=== PATIENT | male | born 1950 | race Caucasian/White ===

== ENCOUNTER 2018-02-20 23:01 | Inpatient (IN) | payer MEDICARE ==
[2018-02-21] MEDS: SENNOSIDES-DOCUSATE SODIUM 1 EACH TAB PO SCH ×3 (02:50→20:19)
[2018-02-21] MEDS: SODIUM CHLORIDE 0.9% 1,000 ML IV SCH ×3 (02:51→21:43)
[2018-02-21] MEDS: SYMBICORT 160-4.5 MCG INHALER INHALATION SCH ×2 (08:24→20:03)
[2018-02-21 08:25] LABS: Anion Gap 7 mmol/L; Blood Urea Nitrogen 23 mg/dL (9-20); Carbon Dioxide 30 mmol/L (22-30); Chloride 95 mmol/L (98-107); Glucose 129 mg/dL (74-99); Potassium 5.2 mmol/L (3.5-5.1); Sodium 132 mmol/L (137-145)
[2018-02-21 08:36] LABS: Basophils % (A) 0 %; Eosinophils % (A) 1 %; HCT 38.2 % (39.0-53.0); HGB 12.4 gm/dL (13.0-17.5); Lymphocytes # (A) 0.3 k/uL (1.0-4.8); Lymphocytes % (A) 7 %; MCH 29.4 pg (25.0-35.0); MCHC 32.5 g/dL (31.0-37.0); MCV 90.6 fL (80.0-100.0); Mean Platelet Volume 7.9; Monocytes # (A) 0.1 k/uL (0-1.0); Monocytes % (A) 2 %; Neutrophils # (A) 4.3 k/uL (1.3-7.7); Neutrophils % (A) 90 %; Platelet Count 133 k/uL (150-450); RBC 4.22 m/uL (4.30-5.90); RDW 14.7 % (11.5-15.5); WBC 4.7 k/uL (3.8-10.6)
[2018-02-21] MEDS: HEPARIN SODIUM,PORCINE 5,000 UNIT/ML 1 ML VIAL SQ SCH ×2 (10:13→20:19)
[2018-02-21] MEDS: AZITHROMYCIN 500 MG in SODIUM CHLORIDE 0.9% 250 ML IVPB SCH (10:13)
[2018-02-21] MEDS: PANTOPRAZOLE 40 MG TABLET PO SCH ×2 (10:13→18:17)
[2018-02-21] MEDS: ACETAMINOPHEN TAB 325 MG TAB PO PRN ×2 (10:21→18:19)
[2018-02-21] MEDS ORDERED: IPRATROPIUM-ALBUTEROL 3 ML NEB INHALATION PRN (11:57)
--- NOTE | 2018-02-21 12:35 | P.HPIM ---
History of Present Illness 67-year-old gentleman with known history of COPD presented with increasing shortness of breath to [place] [facility] and found to have left lower lobe pneumonia and patient was subsequently transferred here. Patient continues to smoke about 2-3 cigarettes per day patient uses 2 L of oxygen at home patient denied any fever chills doesn't have any leukocytosis chest x-ray reading from the report looks like had left lower lobe pneumonia although patient denied any significant sputum production when he coughs. We'll repeat a chest x-ray today here patient was started on Rocephin and azithromycin. Patient will be started on oral steroids for this patient is wheezing significantly and is on 3 L of oxygen more than his baseline. Patient was started on inhaled steroids. Patient has history of coronary artery disease CABG in the past not taking any antiplatelet therapy patient will be started on aspirin it appears patient has history of A. fib as well from the medical history although not on any anti- correlation as per the patient this was discontinued his doctor. Patient was hyponatremic bleed improvedremains hyponatremic with hyperkalemia patient will be started on IV fluids. Review of Systems REVIEW OF SYSTEMS: CONSTITUTIONAL: No fever, no malaise, no fatigue. HEENT: No recent visual problems or hearing problems. Denied any sore throat. CARDIOVASCULAR: No chest pain, orthopnea, PND, no palpitations, no syncope. PULMONARY: no hemoptysis. GASTROINTESTINAL: No diarrhea, no nausea, no vomiting, no abdominal pain. Normoactive bowel sounds. NEUROLOGICAL: No headaches, no weakness, no numbness. HEMATOLOGICAL: Denies any bleeding or petechiae. GENITOURINARY: Denies any burning micturition, frequency, or urgency. MUSCULOSKELETAL/RHEUMATOLOGICAL: Denies any joint pain, swelling, or any muscle pain. ENDOCRINE: Denies any polyuria or polydipsia. The rest of the 14-point review of systems is negative. Past Medical History Past Medical History: Atrial Fibrillation, Coronary Artery Disease (CAD), COPD, Hyperlipidemia, Hypertension, Myocardial Infarction ([place]) Last Myocardial Infarction Date:: 2007 History of Any Multi-Drug Resistant Organisms: None Reported Past Surgical History: Back Surgery Past Anesthesia/Blood Transfusion Reactions: No Reported Reaction Past Psychological History: No Psychological Hx Reported Smoking Status: Current every day smoker Past Alcohol Use History: None Reported Past Drug Use History: None Reported - Past Family History Father Family Medical History: No Reported History Mother Family Medical History: No Reported History Medications and Allergies Home Medications Medication Instructions Recorded Confirmed Type Amiodarone HCl [Pacerone] 200 mg PO DAILY 02/21/18 02/21/18 History Atorvastatin Calcium [Lipitor] 10 mg PO DAILY 02/21/18 02/21/18 History Budesonide/Formoterol Fumarate 2 puff INHALATION BID 02/21/18 02/21/18 History [Symbicort 160-4.5 Mcg Inhaler] Metoprolol Succinate (ER) [Toprol 25 mg PO DAILY 02/21/18 02/21/18 History Xl] Allergies Allergy/AdvReac Type Severity Reaction Status Date / Time Iodinated Contrast- Oral and AdvReac Rash/Hives Verified 02/21/18 08:45 IV Dye Physical Exam Vitals: Vital Signs Temp Pulse Resp BP Pulse Ox 02/21/18 08:25 99 02/21/18 07:00 98 F 61 16 159/79 95 02/21/18 00:15 97.8 F 64 16 140/80 100 Intake and Output 02/20/18 02/21/18 02/21/18 22:59 06:59 14:59 Intake Total 600 Output Total 200 Balance 400 Intake: Intake, IV Titration 60 Amount Sodium Chloride 0.9% 1, 60 000 ml @ 20 mls/hr IV . Q24H [facility] Rx#:[id number] Oral 540 Output: Urine 200 Other: # Voids 1 Weight 86 kg PHYSICAL EXAMINATION: GENERAL: The patient is alert and oriented x3, not in any acute distress. Well developed, well nourished. HEENT: Pupils are round and equally reacting to light. EOMI. No scleral icterus. No conjunctival pallor. Normocephalic, atraumatic. No pharyngeal erythema. No thyromegaly. CARDIOVASCULAR: S1 and S2 present. No murmurs, rubs, or gallops. PULMONARY: Significant expiratory wheezing ABDOMEN: Soft, nontender, nondistended, normoactive bowel sounds. No palpable organomegaly. MUSCULOSKELETAL: No joint swelling or deformity. EXTREMITIES: No cyanosis, clubbing, or pedal edema. NEUROLOGICAL: Gross neurological examination did not reveal any focal deficits. SKIN: No rashes. Results CBC & Chem 7: 02/21/18 07:35 02/21/18 07:35 Labs: Abnormal Lab Results - Last 24 Hours (Table) 02/21/18 02/21/18 Range/Units 07:35 07:35 RBC 4.22 L (4.30-5.90) m/uL Hgb 12.4 L (13.0-17.5) gm/dL Hct 38.2 L (39.0-53.0) % Plt Count 133 L (150-450) k/uL Lymphocytes # 0.3 L (1.0-4.8) k/uL Sodium 132 L (137-145) mmol/L Potassium 5.2 H (3.5-5.1) mmol/L Chloride 95 L (98-107) mmol/L BUN 23 H (9-20) mg/dL Creatinine 0.63 L (0.66-1.25) mg/dL Glucose 129 H (74-99) mg/dL Thrombosis Risk Factor Assmnt - Choose All That Apply Any of the Below Risk Factors Present?: Yes Each Factor Represents 1 point: Abnormal pulmonary function (COPD) Other Risk Factors: Yes Each Risk Factor Represents 2 Points: Age 61-74 years Other congenital or acquired thrombophilia - If yes, enter type in comment: No Thrombosis Risk Factor Assessment Total Risk Factor Score: 3 Thrombosis Risk Factor Assessment Level: Moderate Risk Assessment and Plan Plan: Acute on chronic hypercapnic respiratory failure secondary to COPD exacerbation : Patient was started on prednisone continue with inhalational treatments. -Possibly of left lower lobe pneumonia continue with Rocephin and azithromycin -Coronary artery disease patient was started on aspirin will obtain lipid panel tomorrow may need statin. -History of A. 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 Will not be initiated on any anti-coagulation at this time patient is sinus rhythm at this time -Hypovolemic hyponatremia: Will be started on IV fluids -Mild hyperkalemia secondary to possible mild acute renal failure for which patient was started on on IV fluids. -Hypertension
--- NOTE | 2018-02-21 13:54 | XR ---
EXAMINATION TYPE: XR chest 2V DATE OF EXAM: 02/21/2018 COMPARISON: NONE HISTORY: Pneumonia TECHNIQUE: Frontal and lateral views of the chest are obtained. FINDINGS: Retrocardiac density is present, the left hemidiaphragm is obscured. Patient is post media n sternotomy. Heart size is within normal limits. Prominent pulmonary artery could be indicative of u nderlying pulmonary artery hypertension. Increased AP diameter chest suggests underlying COPD. No talon dent pneumothorax. Interstitium is increased. IMPRESSION: Correlate for left lower lobe pneumonia versus atelectasis and associated effusion. Maurice tional findings above. Follow-up is recommended.
[2018-02-21] MEDS: NICOTINE 7MG/24HR PATCH TRANSDERM SCH (14:43)
--- NOTE | 2018-02-21 15:15 | P.CNPUL ---
History of Present Illness Consult date: 02/21/18 Reason for consult: COPD, pneumonia History of present illness: A 67-year-old male patient, known history of COPD, who is post coronary artery bypass surgery approximately 4 months ago that was done and [place], coming in for increased shortness of breath, cough chest congestion and wheezing typically of an underlying COPD exacerbation. He is a chronic smoker. He was still smoking several cigarettes on a daily basis. He was diagnosed having a left lower lobe pneumonia and for that reason he was referred to [facility] for further evaluation and treatment. He is currently on 3 L of oxygen by nasal cannula. He is a poor historian. He denies having any pleurisy or chest pain. His sternal wound has healed nicely. No nausea. No vomiting. No abdominal pain. No altered mentation. He has been utilizing oxygen at 3 L per minute nasal cannula on outpatient basis. He also has a nebulizer at home. He is cardiac rhythm is sinus. He may have had issues with atrial fibrillation postop as the patient is currently on amiodarone, yet he is not on any anticoagulation. No swelling in lower extremities. No 70 DVTs or pulmonary embolism. His chest x-ray shows left lower lobe consolidation and small left-sided pleural effusion. Currently is on a combination of Rocephin and Zithromax. Review of Systems Constitutional: Reports fatigue, Reports weakness Eyes: denies blurred vision, denies bulging eye, denies decreased vision Ears: deny: decreased hearing, ear discharge, earache, tinnitus Ears, nose, mouth and throat: Denies headache, Denies sore throat Cardiovascular: Reports decreased exercise tolerance, Reports dyspnea on exertion, Reports shortness of breath Respiratory: Reports congestion, Reports dyspnea, Reports excessive sputum, Reports home oxygen Gastrointestinal: Denies abdominal pain, Denies diarrhea, Denies nausea, Denies vomiting Genitourinary: Reports as per HPI Musculoskeletal: Reports as per HPI Musculoskeletal: absent: ankle pain, ankle stiffness, ankle swelling Integumentary: Reports as per HPI Neurological: Reports as per HPI Psychiatric: Reports as per HPI Endocrine: Reports as per HPI, Reports fatigue Hematologic/Lymphatic: Reports as per HPI Allergic/Immunologic: Reports as per HPI Past Medical History Past Medical History: Atrial Fibrillation, Coronary Artery Disease (CAD), COPD, Hyperlipidemia, Hypertension, Myocardial Infarction ([place]) Last Myocardial Infarction Date:: 2007 History of Any Multi-Drug Resistant Organisms: None Reported Past Surgical History: Back Surgery Additional Past Surgical History / Comment(s): Coronary artery bypass surgery approximately 4 months ago, laparoscopic cholecystectomy, appendectomy and lower back surgery. Past Anesthesia/Blood Transfusion Reactions: No Reported Reaction Past Psychological History: No Psychological Hx Reported Smoking Status: Current every day smoker Past Alcohol Use History: None Reported Past Drug Use History: None Reported - Past Family History Father Family Medical History: No Reported History Mother Family Medical History: No Reported History Medications and Allergies Home Medications Medication Instructions Recorded Confirmed Type Amiodarone HCl [Pacerone] 200 mg PO DAILY 02/21/18 02/21/18 History Atorvastatin Calcium [Lipitor] 10 mg PO DAILY 02/21/18 02/21/18 History Budesonide/Formoterol Fumarate 2 puff INHALATION BID 02/21/18 02/21/18 History [Symbicort 160-4.5 Mcg Inhaler] Metoprolol Succinate (ER) [Toprol 25 mg PO DAILY 02/21/18 02/21/18 History Xl] Allergies Allergy/AdvReac Type Severity Reaction Status Date / Time Iodinated Contrast- Oral and AdvReac Rash/Hives Verified 02/21/18 08:45 IV Dye Physical Exam Vitals: Vital Signs Temp Pulse Resp BP Pulse Ox 02/21/18 14:42 97.8 F 64 16 114/58 98 02/21/18 08:25 99 02/21/18 07:00 98 F 61 16 159/79 95 02/21/18 00:15 97.8 F 64 16 140/80 100 Intake and Output 02/21/18 02/21/18 02/21/18 06:59 14:59 22:59 Intake Total 600 Output Total 200 250 Balance 400 -250 Intake: Intake, IV Titration 60 Amount Sodium Chloride 0.9% 1, 60 000 ml @ 20 mls/hr IV . Q24H [facility] Rx#:[id number] Oral 540 Output: Urine 200 250 Other: # Voids 1 Weight 86 kg Gen. appearance she is calm and comfortable likely distress. Head exam was generally normal. There was no scleral icterus or corneal arcus. Mucous membranes were moist. Neck was supple and without jugular venous distension, thyromegaly, or carotid bruits. Carotids were easily palpable bilaterally. There was no adenopathy. Lungs sounds are diminished bilaterally along with prolongation of the expiratory phase of breathing and scattered expiratory wheezes of total lung lopez. Heart sounds are regular, no significant murmurs appreciated. Sternum stable clean and intact and the thoracotomy scar is dry and clean Abdominal exam revealed normal bowel sounds. The abdomen was soft, non-tender, and without masses, organomegaly, or appreciable enlargement of the abdominal aorta. Examination of the extremities revealed easily palpable radial, femoral and pedal pulses. There was no cyanosis, clubbing or edema. Examination of the skin revealed no evidence of significant rashes, suspicious appearing nevi or other concerning lesions. Neurologically the patient is awake and alert and is no focal neurological deficits. He is a poor historian. He is not aware of the details of previous medical needs and hospitalizations and treatments. Results - Laboratory Findings CBC and BMP: 02/21/18 07:35 02/21/18 07:35 Abnormal lab findings: Abnormal Labs 02/21/18 02/21/18 07:35 07:35 RBC 4.22 L Hgb 12.4 L Hct 38.2 L Plt Count 133 L Lymphocytes # 0.3 L Sodium 132 L Potassium 5.2 H Chloride 95 L BUN 23 H Creatinine 0.63 L Glucose 129 H - Diagnostic Findings Chest x-ray: image reviewed Assessment and Plan Plan: Assessment 1 acute left lower lobe pneumonia, likely community-acquired, with a small left- sided pleural effusion 2 acute COPD exacerbation secondary to left lower lobe pneumonia 3 chronic COPD, likely severe with oxygen dependence at 2 L per minute nasal cannula 4 coronary artery disease with recent coronary bypass surgery 5 smoker 6 hypertension 7 suspected history of atrial fibrillation current rhythm is sinus. The patient is on no anticoagulation 8 poor historian, suspect underlying dementia 9 hyperlipidemia Plan We'll elect to get records from [facility] regarding his previous hospitalization and cardiac disease. We'll treat the left lower lobe pneumonia with a combination of Rocephin and Zithromax. His sputum Gram stain and culture. Continue DuoNeb nebulized treatments around the clock. Continue Symbicort as maintenance. IV Solu Medrol 60 mg every 6 hours. Nicotine patch. Resume outpatient cardiac medications. Blood Work was reviewed. No other abnormalities noted. Chest x-ray was reviewed. We'll continue to follow.
[2018-02-21] MEDS: IPRATROPIUM-ALBUTEROL 3 ML NEB INHALATION SCH ×3 (16:15→20:03)
[2018-02-21 17:21] LABS: Glucose,Whole Blood 129 mg/dL (75-99)
[2018-02-21 20:05] LABS: Glucose,Whole Blood 106 mg/dL (75-99)
[2018-02-22] MEDS: SODIUM CHLORIDE 0.9% 1,000 ML IV SCH ×4 (00:47→21:50)
[2018-02-22] MEDS: SYMBICORT 160-4.5 MCG INHALER INHALATION SCH ×2 (08:02→19:59)
[2018-02-22] MEDS: IPRATROPIUM-ALBUTEROL 3 ML NEB INHALATION SCH ×4 (08:02→19:59)
[2018-02-22] MEDS: AZITHROMYCIN 500 MG in SODIUM CHLORIDE 0.9% 250 ML IVPB SCH (08:24)
[2018-02-22 09:11] LABS: HCT 36.1 % (39.0-53.0); HGB 11.5 gm/dL (13.0-17.5); Hypochromasia Slight; MCH 29.3 pg (25.0-35.0); MCHC 31.8 g/dL (31.0-37.0); MCV 92.1 fL (80.0-100.0); Mean Platelet Volume 7.6; Platelet Count 114 k/uL (150-450); RBC 3.92 m/uL (4.30-5.90); RDW 14.7 % (11.5-15.5); WBC 6.5 k/uL (3.8-10.6)
[2018-02-22 09:27] LABS: Anion Gap 4 mmol/L; Blood Urea Nitrogen 20 mg/dL (9-20); Calcium 8.4 mg/dL (8.4-10.2); Carbon Dioxide 30 mmol/L (22-30); Chloride 97 mmol/L (98-107); Cholesterol 96 mg/dL (<200); Glucose 98 mg/dL (74-99); HDL Cholesterol 41 mg/dL (40-60); LDL Cholesterol,Calculated 40 mg/dL (0-99); Potassium 4.4 mmol/L (3.5-5.1); Sodium 131 mmol/L (137-145); Triglycerides 75 mg/dL (<150)
[2018-02-22] MEDS: ASPIRIN 81 MG PO SCH (09:32)
[2018-02-22] MEDS: AMIODARONE 200 MG TAB PO SCH (09:32)
[2018-02-22] MEDS: PANTOPRAZOLE 40 MG TABLET PO SCH ×2 (09:32→17:18)
[2018-02-22] MEDS: HEPARIN SODIUM,PORCINE 5,000 UNIT/ML 1 ML VIAL SQ SCH ×2 (09:33→21:50)
[2018-02-22] MEDS: METOPROLOL SUCCINATE (ER) 25 MG TAB.ER.24H PO SCH (09:33)
[2018-02-22] MEDS: NICOTINE 7MG/24HR PATCH TRANSDERM SCH (09:34)
[2018-02-22] MEDS: SENNOSIDES-DOCUSATE SODIUM 1 EACH TAB PO SCH ×2 (09:34→21:50)
[2018-02-22] MEDS ORDERED: predniSONE 20 MG TAB PO SCH (10:45)
--- NOTE | 2018-02-22 11:19 | P.PN ---
Subjective 67-year-old admitted for left lower lobe pneumonia and COPD exacerbation patient is bit better today his shortness of breath improved. Patient will be can you on systemic steroids and inhalational treatments and antibiotics. Constitutional: Denied any fatigue denied any fever. Cardio vascular: denied any chest pain, palpitations Gastrointestinal denied any nausea vomiting Pulmonary: As mentioned above Neurologic denied any new focal deficits All inpatient medications were reviewed and appropriate changes in these medications as dictated in the interval history and assessment and plan. Objective - Vital Signs Vital signs: Vital Signs Temp 97.8 F 02/22/18 07:00 Pulse 64 02/22/18 10:13 Resp 18 02/22/18 10:13 BP 128/68 02/22/18 07:00 Pulse Ox 98 02/22/18 00:03 Intake & Output 02/21/18 02/22/18 02/22/18 18:59 06:59 18:59 Intake Total 540 100 Output Total 250 100 Balance -250 440 100 Intake: Intake, IV Titration 300 Amount Sodium Chloride 0.9% 1, 300 000 ml @ 100 mls/hr IV . Q10H [facility] Rx#:[id number] Oral 240 100 Output: Urine 250 100 Other: Voiding Method Urinal # Voids 1 - Exam PHYSICAL EXAMINATION: GENERAL: The patient is alert and oriented x3, not in any acute distress. Well developed, well nourished. HEENT: Pupils are round and equally reacting to light. EOMI. No scleral icterus. No conjunctival pallor. Normocephalic, atraumatic. No pharyngeal erythema. No thyromegaly. CARDIOVASCULAR: S1 and S2 present. No murmurs, rubs, or gallops. PULMONARY: Expiratory wheezing improved compared to yesterday. ABDOMEN: Soft, nontender, nondistended, normoactive bowel sounds. No palpable organomegaly. MUSCULOSKELETAL: No joint swelling or deformity. EXTREMITIES: No cyanosis, clubbing, or pedal edema. NEUROLOGICAL: Gross neurological examination did not reveal any focal deficits. SKIN: No rashes. - Labs CBC & Chem 7: 02/22/18 07:51 02/22/18 07:51 Labs: Abnormal Lab Results - Last 24 Hours (Table) 02/21/18 02/21/18 02/22/18 Range/Units 17:10 19:52 07:51 RBC 3.92 L (4.30-5.90) m/uL Hgb 11.5 L (13.0-17.5) gm/dL Hct 36.1 L (39.0-53.0) % Plt Count 114 L (150-450) k/uL Sodium (137-145) mmol/L Chloride (98-107) mmol/L Creatinine (0.66-1.25) mg/dL POC Glucose (mg/dL) 129 H 106 H (75-99) mg/dL 02/22/18 Range/Units 07:51 RBC (4.30-5.90) m/uL Hgb (13.0-17.5) gm/dL Hct (39.0-53.0) % Plt Count (150-450) k/uL Sodium 131 L (137-145) mmol/L Chloride 97 L (98-107) mmol/L Creatinine 0.57 L (0.66-1.25) mg/dL POC Glucose (mg/dL) (75-99) mg/dL Assessment and Plan Plan: Acute on chronic hypercapnic respiratory failure secondary to COPD exacerbation : Patient is on prednisone continue with inhalational treatments. -Possibly of left lower lobe pneumonia continue with Rocephin and azithromycin -Coronary artery disease patient was started on aspirin will obtain lipid panel tomorrow may need statin. -History of A. 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 Will not be initiated on any anti-coagulation at this time patient is sinus rhythm at this time -Hypovolemic hyponatremia: Will be started on IV fluids -Mild hyperkalemia secondary to possible mild acute renal failure for which patient was started on on IV fluids. -Hypertension
--- NOTE | 2018-02-22 13:19 | P.PN ---
Subjective Progress Note Date: 02/22/18 Principal diagnosis: Left lower lobe pneumonia, community-acquired, COPD exacerbation A 67-year-old male patient, known history of COPD, who is post coronary artery bypass surgery approximately 4 months ago that was done and [place], coming in for increased shortness of breath, cough chest congestion and wheezing typically of an underlying COPD exacerbation. He is a chronic smoker. He was still smoking several cigarettes on a daily basis. He was diagnosed having a left lower lobe pneumonia and for that reason he was referred to [facility] for further evaluation and treatment. He is currently on 3 L of oxygen by nasal cannula. He is a poor historian. He denies having any pleurisy or chest pain. His sternal wound has healed nicely. No nausea. No vomiting. No abdominal pain. No altered mentation. He has been utilizing oxygen at 3 L per minute nasal cannula on outpatient basis. He also has a nebulizer at home. He is cardiac rhythm is sinus. He may have had issues with atrial fibrillation postop as the patient is currently on amiodarone, yet he is not on any anticoagulation. No swelling in lower extremities. No 68 DVTs or pulmonary embolism. His chest x-ray shows left lower lobe consolidation and small left-sided pleural effusion. Currently is on a combination of Rocephin and Zithromax. The patient is seen again today 02/22/2018 in follow-up on the regular medical floor. He is currently resting quite comfortably in bed. He is awake and alert in no acute distress. He states he is breathing a bit better today as compared to yesterday. Not quite back to his baseline. He has a loose nonproductive cough. He is maintaining good O2 saturations in the 90s on 3 L/m per nasal cannula. He is afebrile. Hemodynamically stable. White count 6.5. Hemoglobin 11.5. Creatinine 0.57. He remains on bronchodilators, Symbicort, antibiotics in the form of ceftriaxone and azithromycin. Nicotine patches in place. Objective - Vital Signs Vital signs: Vital Signs Temp 97.8 F 02/22/18 07:00 Pulse 69 02/22/18 11:36 Resp 18 02/22/18 10:13 BP 128/68 02/22/18 07:00 Pulse Ox 98 02/22/18 00:03 Intake & Output 02/21/18 02/22/18 02/22/18 18:59 06:59 18:59 Intake Total 540 100 Output Total 250 100 Balance -250 440 100 Intake: Intake, IV Titration 300 Amount Sodium Chloride 0.9% 1, 300 000 ml @ 100 mls/hr IV . Q10H [facility] Rx#:[id number] Oral 240 100 Output: Urine 250 100 Other: Voiding Method Urinal # Voids 1 - Exam Gen. appearance she is calm and comfortable likely distress. Head exam was generally normal. There was no scleral icterus or corneal arcus. Mucous membranes were moist. Neck was supple and without jugular venous distension, thyromegaly, or carotid bruits. Carotids were easily palpable bilaterally. There was no adenopathy. Lungs sounds are diminished bilaterally along with prolongation of the expiratory phase of breathing and scattered expiratory wheezes of total lung lopez. Heart sounds are regular, no significant murmurs appreciated. Sternum stable clean and intact and the thoracotomy scar is dry and clean Abdominal exam revealed normal bowel sounds. The abdomen was soft, non-tender, and without masses, organomegaly, or appreciable enlargement of the abdominal aorta. Examination of the extremities revealed easily palpable radial, femoral and pedal pulses. There was no cyanosis, clubbing or edema. Examination of the skin revealed no evidence of significant rashes, suspicious appearing nevi or other concerning lesions. Neurologically the patient is awake and alert and is no focal neurological deficits. He is a poor historian. He is not aware of the details of previous medical needs and hospitalizations and treatments. - Labs CBC & Chem 7: 02/22/18 07:51 02/22/18 07:51 Labs: Abnormal Lab Results - Last 24 Hours (Table) 02/21/18 02/21/18 02/22/18 Range/Units 17:10 19:52 07:51 RBC 3.92 L (4.30-5.90) m/uL Hgb 11.5 L (13.0-17.5) gm/dL Hct 36.1 L (39.0-53.0) % Plt Count 114 L (150-450) k/uL Sodium (137-145) mmol/L Chloride (98-107) mmol/L Creatinine (0.66-1.25) mg/dL POC Glucose (mg/dL) 129 H 106 H (75-99) mg/dL 02/22/18 Range/Units 07:51 RBC (4.30-5.90) m/uL Hgb (13.0-17.5) gm/dL Hct (39.0-53.0) % Plt Count (150-450) k/uL Sodium 131 L (137-145) mmol/L Chloride 97 L (98-107) mmol/L Creatinine 0.57 L (0.66-1.25) mg/dL POC Glucose (mg/dL) (75-99) mg/dL Assessment and Plan Assessment: Assessment 1 acute left lower lobe pneumonia, likely community-acquired, with a small left- sided pleural effusion 2 acute COPD exacerbation secondary to left lower lobe pneumonia 3 chronic COPD, likely severe with oxygen dependence at 2 L per minute nasal cannula 4 coronary artery disease with recent coronary bypass surgery 5 smoker 6 hypertension 7 suspected history of atrial fibrillation current rhythm is sinus. The patient is on no anticoagulation 8 poor historian, suspect underlying dementia 9 hyperlipidemia Plan The patient was seen and evaluated by Dr. Dubose. We'll continue with his current treatment plan including bronchodilators, Symbicort, and antibiotics in the form of ceftriaxone and azithromycin. Continue IV Solu-Medrol. We will increase his activity as tolerated. He is again educated regarding the importance of complete smoking cessation. NicoDerm patch remains. We will repeat a chest x-ray in the a.m. We'll continue to follow. I, the cosigning physician, performed a history & physical examination of the patient. Lungs sounds with bilateral wheeze, diminished, crackles in left posterior base. Maintaining good O2 saturations in the 90s on 3 L/m per nasal cannula. I discussed the assessment and plan of care with my nurse practitioner , Mary Lopez. I attest to the above note as dictated by her.
[2018-02-22] MEDS: methylPREDNISolone SOD SUCCI 125 MG/2 ML VIAL IV SCH (17:18)
[2018-02-22] MEDS: ACETAMINOPHEN TAB 325 MG TAB PO PRN (21:51)
[2018-02-23] MEDS: methylPREDNISolone SOD SUCCI 125 MG/2 ML VIAL IV SCH ×5 (00:09→23:16)
[2018-02-23] MEDS: ALPRAZolam 0.5 MG TAB PO PRN ×2 (01:14→21:28)
[2018-02-23] MEDS: METOPROLOL SUCCINATE (ER) 25 MG TAB.ER.24H PO SCH (08:14)
[2018-02-23] MEDS: AMIODARONE 200 MG TAB PO SCH (08:14)
[2018-02-23] MEDS: NICOTINE 7MG/24HR PATCH TRANSDERM SCH (08:14)
[2018-02-23] MEDS: PANTOPRAZOLE 40 MG TABLET PO SCH ×2 (08:14→17:32)
[2018-02-23] MEDS: SENNOSIDES-DOCUSATE SODIUM 1 EACH TAB PO SCH ×2 (08:15→21:28)
[2018-02-23] MEDS: AZITHROMYCIN 500 MG in SODIUM CHLORIDE 0.9% 250 ML IVPB SCH (08:15)
[2018-02-23] MEDS: HEPARIN SODIUM,PORCINE 5,000 UNIT/ML 1 ML VIAL SQ SCH ×2 (08:15→21:28)
[2018-02-23] MEDS: ACETAMINOPHEN TAB 325 MG TAB PO PRN ×2 (08:25→23:16)
[2018-02-23] MEDS: ASPIRIN 81 MG PO SCH (08:25)
[2018-02-23] MEDS: IPRATROPIUM-ALBUTEROL 3 ML NEB INHALATION SCH ×4 (09:01→19:59)
[2018-02-23] MEDS: SYMBICORT 160-4.5 MCG INHALER INHALATION SCH ×2 (09:02→19:59)
--- NOTE | 2018-02-23 13:34 | CDI ---
Last Revision, March 2017 Documentation Clarification Form Date: 02/23/2018 1:28:00 PM From: Hannah Blancas RN, CCDS Admit Date: 02/21/2018 12:16:00 AM Patient Name: Eb Sloan Visit Number: [id number] ATTENTION: The Clinical Documentation Specialists (CDI) and [facility] Coding Staff appreciate your assistance in clarifying documentation. Please respond to the clarification below the line at the bottom and electronically sign. The CDI & [facility] Coding staff will review the response and follow-up if needed. Please note: Queries are made part of the Legal Health Record. If you have any questions, please contact the author of this message via ITS. Greg Pino MD Atrial fibrillation is documented in the H&P and Progress notes and requires further specificity. History/Risk Factors: A/C hypercapnic respiratory failure, CAD, Hx of A-fib Clinical Indicators: 02/22 Attending Progress note: suspected history of atrial fibrillation current rhythm is sinus." EKG/telemetry: SR per documentation Treatment: Consults: Pulmonary Cordarone 200 mg Po Qd Toprol XL 25 mg PO QD In your professional opinion, can you please clarify the type of atrial fibrillation, if known? Chronic/Permanent Paroxysmal Persistent Other, please specify Unable to determine Please continue to document in your progress notes and discharge summary in order to capture severity of illness and risk of mortality. Include clinical findings that support your diagnosis. MTDD
--- NOTE | 2018-02-23 14:52 | P.PN ---
Subjective Progress Note Date: 02/23/18 Principal diagnosis: Left lower lobe pneumonia, community acquired, COPD exacerbation A 67-year-old male patient, known history of COPD, who is post coronary artery bypass surgery approximately 4 months ago that was done and [place], coming in for increased shortness of breath, cough chest congestion and wheezing typically of an underlying COPD exacerbation. He is a chronic smoker. He was still smoking several cigarettes on a daily basis. He was diagnosed having a left lower lobe pneumonia and for that reason he was referred to [facility] for further evaluation and treatment. He is currently on 3 L of oxygen by nasal cannula. He is a poor historian. He denies having any pleurisy or chest pain. His sternal wound has healed nicely. No nausea. No vomiting. No abdominal pain. No altered mentation. He has been utilizing oxygen at 3 L per minute nasal cannula on outpatient basis. He also has a nebulizer at home. He is cardiac rhythm is sinus. He may have had issues with atrial fibrillation postop as the patient is currently on amiodarone, yet he is not on any anticoagulation. No swelling in lower extremities. No 70 DVTs or pulmonary embolism. His chest x-ray shows left lower lobe consolidation and small left-sided pleural effusion. Currently is on a combination of Rocephin and Zithromax. The patient is seen again today 02/22/2018 in follow-up on the regular medical floor. He is currently resting quite comfortably in bed. He is awake and alert in no acute distress. He states he is breathing a bit better today as compared to yesterday. Not quite back to his baseline. He has a loose nonproductive cough. He is maintaining good O2 saturations in the 90s on 3 L/m per nasal cannula. He is afebrile. Hemodynamically stable. White count 6.5. Hemoglobin 11.5. Creatinine 0.57. He remains on bronchodilators, Symbicort, antibiotics in the form of ceftriaxone and azithromycin. Nicotine patches in place. On 02/23/2018 patient seen in follow-up on medical surgical floor. Breathing easier today, although he still has some residual wheezing. No fever, no chills , he is on 3 L per nasal cannula his pulse ox is 93%, labs reviewed, WBC 6.5, hemoglobin is 11.5, sodium is 131, potassium is 4.4, chloride is 97, B1 is 20, creatinine 0.57. Patient is on addition of Zithromax and Rocephin, IV Solu- Medrol, and nebulized bronchodilators, continue with current medical treatment. Objective - Vital Signs Vital signs: Vital Signs Temp 97.6 F 02/23/18 07:28 Pulse 70 02/23/18 14:35 Resp 16 02/23/18 07:28 BP 113/72 02/23/18 14:35 Pulse Ox 93 L 02/23/18 14:35 Intake & Output 02/22/18 02/23/18 02/23/18 18:59 06:59 18:59 Intake Total 1050 670 790 Output Total 400 250 Balance 1050 270 540 Weight 86 kg Intake: Intake, IV Titration 450 80 440 Amount Azithromycin 500 mg In 250 250 Sodium Chloride 0.9% 250 ml @ 250 mls/hr IVPB DAILY [facility] Rx#:[id number] Sodium Chloride 0.9% 1, 80 000 ml @ 100 mls/hr IV . Q10H [facility] Rx#:[id number] Sodium Chloride 0.9% 1, 100 140 000 ml @ 20 mls/hr IV . Q24H [facility] Rx#:[id number] cefTRIAXone 1,000 mg In 100 50 Sodium Chloride 0.9% 50 ml @ 100 mls/hr IVPB Q24H [facility] Rx#:[id number] Oral 600 590 350 Output: Urine 400 250 Other: Voiding Method Urinal Urinal # Voids 600 2 1 - Exam Gen. appearance she is calm and comfortable likely distress. Head exam was generally normal. There was no scleral icterus or corneal arcus. Mucous membranes were moist. Neck was supple and without jugular venous distension, thyromegaly, or carotid bruits. Carotids were easily palpable bilaterally. There was no adenopathy. Lungs sounds are diminished bilaterally along with prolongation of the expiratory phase of breathing and scattered expiratory wheezes of total lung lopez. Heart sounds are regular, no significant murmurs appreciated. Sternum stable clean and intact and the thoracotomy scar is dry and clean Abdominal exam revealed normal bowel sounds. The abdomen was soft, non-tender, and without masses, organomegaly, or appreciable enlargement of the abdominal aorta. Examination of the extremities revealed easily palpable radial, femoral and pedal pulses. There was no cyanosis, clubbing or edema. Examination of the skin revealed no evidence of significant rashes, suspicious appearing nevi or other concerning lesions. Neurologically the patient is awake and alert and is no focal neurological deficits. He is a poor historian. He is not aware of the details of previous medical needs and hospitalizations and treatments. - Labs CBC & Chem 7: 02/22/18 07:51 02/22/18 07:51 Assessment and Plan Plan: 1 acute left lower lobe pneumonia, likely community-acquired, with a small left- sided pleural effusion 2 acute COPD exacerbation secondary to left lower lobe pneumonia 3 chronic COPD, likely severe with oxygen dependence at 2 L per minute nasal cannula 4 coronary artery disease with recent coronary bypass surgery 5 smoker 6 hypertension 7 suspected history of atrial fibrillation current rhythm is sinus. The patient is on no anticoagulation 8 poor historian, suspect underlying dementia 9 hyperlipidemia Plan: Continue current plan of treatment. Continue empiric antibiotics, IV steroids, nebulized bronchodilators. Overall patient is breathing easier, improving. Increase activity as tolerated. Could probably be considered for discharge in another 24 hours provided he continues to improve I performed a history & physical examination of the patient and discussed their management with my nurse practitioner, Gavi Womack. I reviewed the nurse practitioner's note and agree with the documented findings and plan of care. Lung sounds are positive for diffuse wheezes. The findings and the impression was discussed with the patient. I attest to the documentation by the nurse practitioner. Time with Patient: Less than 30
--- NOTE | 2018-02-23 17:53 | P.PN ---
Subjective Progress Note Date: 02/23/18 Principal diagnosis: LLL PNA COPD Exac 67-year-old admitted for left lower lobe pneumonia and COPD exacerbation patient is bit better today his shortness of breath improved. Patient will be can you on systemic steroids and inhalational treatments and antibiotics. 02/23/2018 patient seen in follow-up on medical surgical floor. Breathing easier today, although he still has some residual wheezing. No fever, no chills, he is on 3 L per nasal cannula his pulse ox is 93%, labs reviewed, WBC 6.5, hemoglobin is 11.5, sodium is 131, potassium is 4.4, chloride is 97, B1 is 20, creatinine 0.57. Patient is on addition of Zithromax and Rocephin, IV Solu-Medrol, and nebulized bronchodilators, continue with current medical treatment. Constitutional: Denied any fatigue denied any fever. Cardio vascular: denied any chest pain, palpitations Gastrointestinal denied any nausea vomiting Pulmonary: As mentioned above Neurologic denied any new focal deficits All inpatient medications were reviewed and appropriate changes in these medications as dictated in the interval history and assessment and plan. Objective - Vital Signs Vital signs: Vital Signs Temp 97.6 F 02/23/18 07:28 Pulse 64 02/23/18 09:11 Resp 16 02/23/18 07:28 BP 150/82 02/23/18 07:28 Pulse Ox 96 02/23/18 07:28 Intake & Output 02/22/18 02/23/18 02/23/18 18:59 06:59 18:59 Intake Total 1050 670 350 Output Total 400 250 Balance 1050 270 100 Weight 86 kg Intake: Intake, IV Titration 450 80 Amount Azithromycin 500 mg In 250 Sodium Chloride 0.9% 250 ml @ 250 mls/hr IVPB DAILY [facility] Rx#:[id number] Sodium Chloride 0.9% 1, 80 000 ml @ 100 mls/hr IV . Q10H [facility] Rx#:[id number] Sodium Chloride 0.9% 1, 100 000 ml @ 20 mls/hr IV . Q24H [facility] Rx#:[id number] cefTRIAXone 1,000 mg In 100 Sodium Chloride 0.9% 50 ml @ 100 mls/hr IVPB Q24H [facility] Rx#:[id number] Oral 600 590 350 Output: Urine 400 250 Other: Voiding Method Urinal Urinal # Voids 600 2 1 - Exam GENERAL: The patient is alert and oriented x3, not in any acute distress. Well developed, well nourished. HEENT: Pupils are round and equally reacting to light. EOMI. No scleral icterus. No conjunctival pallor. Normocephalic, atraumatic. No pharyngeal erythema. No thyromegaly. CARDIOVASCULAR: S1 and S2 present. No murmurs, rubs, or gallops. PULMONARY: Expiratory wheezing improved compared to yesterday. ABDOMEN: Soft, nontender, nondistended, normoactive bowel sounds. No palpable organomegaly. MUSCULOSKELETAL: No joint swelling or deformity. EXTREMITIES: No cyanosis, clubbing, or pedal edema. NEUROLOGICAL: Gross neurological examination did not reveal any focal deficits. SKIN: No rashes. - Labs CBC & Chem 7: 02/22/18 07:51 02/22/18 07:51 Assessment and Plan Assessment: Plan: Acute on chronic hypercapnic respiratory failure secondary to COPD exacerbation : Patient is on prednisone continue with inhalational treatments. Possibly of left lower lobe pneumonia; continue with Rocephin and azithromycin Coronary artery disease; patient was started on aspirin will obtain lipid panel tomorrow may need statin. History of A. 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 - Will not be initiated on any anti-coagulation at this time patient is sinus rhythm at this time Hypovolemic hyponatremia: Will be started on IV fluids Mild hyperkalemia secondary to possible mild acute renal failure for which patient was started on on IV fluids. Hypertension DVT Prophylaxis; sq heparin CODE STATUS; full code Time with Patient: Greater than 30
[2018-02-23] MEDS: SODIUM CHLORIDE 0.9% 1,000 ML IV SCH (23:16)
[2018-02-24] MEDS: methylPREDNISolone SOD SUCCI 125 MG/2 ML VIAL IV SCH ×2 (06:06→12:00)
[2018-02-24 07:40] LABS: Basophils % (A) 0 %; Eosinophils % (A) 0 %; HCT 41.2 % (39.0-53.0); HGB 13.3 gm/dL (13.0-17.5); Hypochromasia Slight; Lymphocytes # (A) 0.6 k/uL (1.0-4.8); Lymphocytes % (A) 5 %; MCH 29.6 pg (25.0-35.0); MCHC 32.2 g/dL (31.0-37.0); Mean Platelet Volume 8.2; Monocytes # (A) 0.3 k/uL (0-1.0); Monocytes % (A) 3 %; Neutrophils # (A) 10.9 k/uL (1.3-7.7); Neutrophils % (A) 92 %; Platelet Count 127 k/uL (150-450); RBC 4.48 m/uL (4.30-5.90); RDW 14.7 % (11.5-15.5); WBC 11.8 k/uL (3.8-10.6)
[2018-02-24 08:04] LABS: Anion Gap 7 mmol/L; Blood Urea Nitrogen 32 mg/dL (9-20); Calcium 8.5 mg/dL (8.4-10.2); Carbon Dioxide 31 mmol/L (22-30); Chloride 97 mmol/L (98-107); Glucose 134 mg/dL (74-99); Potassium 4.6 mmol/L (3.5-5.1); Sodium 135 mmol/L (137-145)
[2018-02-24] MEDS: SYMBICORT 160-4.5 MCG INHALER INHALATION SCH (08:29)
[2018-02-24] MEDS: IPRATROPIUM-ALBUTEROL 3 ML NEB INHALATION SCH ×2 (08:29→13:00)
[2018-02-24] MEDS: HEPARIN SODIUM,PORCINE 5,000 UNIT/ML 1 ML VIAL SQ SCH (08:43)
[2018-02-24] MEDS: NICOTINE 7MG/24HR PATCH TRANSDERM SCH (08:44)
[2018-02-24] MEDS: METOPROLOL SUCCINATE (ER) 25 MG TAB.ER.24H PO SCH (08:44)
[2018-02-24] MEDS: PANTOPRAZOLE 40 MG TABLET PO SCH (08:44)
[2018-02-24] MEDS: SENNOSIDES-DOCUSATE SODIUM 1 EACH TAB PO SCH (08:45)
[2018-02-24] MEDS: AMIODARONE 200 MG TAB PO SCH (08:45)
[2018-02-24] MEDS: ASPIRIN 81 MG PO SCH (08:45)
[2018-02-24] MEDS ORDERED: AZITHROMYCIN 500 MG TAB PO SCH (09:00)
[2018-02-24 14:16] VITALS: BP 127/75; PULSE 73; RESP 16; TEMP 98.2
--- NOTE | 2018-02-24 15:42 | P.PN ---
Subjective Progress Note Date: 02/24/18 Principal diagnosis: Left lower lobe pneumonia, community-acquired, COPD exacerbation A 67-year-old male patient, known history of COPD, who is post coronary artery bypass surgery approximately 4 months ago that was done and [place], coming in for increased shortness of breath, cough chest congestion and wheezing typically of an underlying COPD exacerbation. He is a chronic smoker. He was still smoking several cigarettes on a daily basis. He was diagnosed having a left lower lobe pneumonia and for that reason he was referred to [facility] for further evaluation and treatment. He is currently on 3 L of oxygen by nasal cannula. He is a poor historian. He denies having any pleurisy or chest pain. His sternal wound has healed nicely. No nausea. No vomiting. No abdominal pain. No altered mentation. He has been utilizing oxygen at 3 L per minute nasal cannula on outpatient basis. He also has a nebulizer at home. He is cardiac rhythm is sinus. He may have had issues with atrial fibrillation postop as the patient is currently on amiodarone, yet he is not on any anticoagulation. No swelling in lower extremities. No 70 DVTs or pulmonary embolism. His chest x-ray shows left lower lobe consolidation and small left-sided pleural effusion. Currently is on a combination of Rocephin and Zithromax. The patient is seen again today 02/22/2018 in follow-up on the regular medical floor. He is currently resting quite comfortably in bed. He is awake and alert in no acute distress. He states he is breathing a bit better today as compared to yesterday. Not quite back to his baseline. He has a loose nonproductive cough. He is maintaining good O2 saturations in the 90s on 3 L/m per nasal cannula. He is afebrile. Hemodynamically stable. White count 6.5. Hemoglobin 11.5. Creatinine 0.57. He remains on bronchodilators, Symbicort, antibiotics in the form of ceftriaxone and azithromycin. Nicotine patches in place. On 02/23/2018 patient seen in follow-up on medical surgical floor. Breathing easier today, although he still has some residual wheezing. No fever, no chills , he is on 3 L per nasal cannula his pulse ox is 93%, labs reviewed, WBC 6.5, hemoglobin is 11.5, sodium is 131, potassium is 4.4, chloride is 97, B1 is 20, creatinine 0.57. Patient is on addition of Zithromax and Rocephin, IV Solu- Medrol, and nebulized bronchodilators, continue with current medical treatment. Patient is seen again today 02/24/2018 in follow-up on the regular medical floor. He is currently sitting up in a chair at the bedside. He is awake and alert in no acute distress. He is improved today as compared to yesterday. He is now maintaining good O2 saturations in the 90s on room air. He's afebrile. Hemodynamically stable. Less bronchospastic and wheezy. White count 11.8. Hemoglobin 13.3. Creatinine 0.60. Objective - Vital Signs Vital signs: Vital Signs Temp 98.2 F 02/24/18 14:15 Pulse 73 02/24/18 14:15 Resp 16 02/24/18 14:15 BP 127/75 02/24/18 14:15 Pulse Ox 93 L 02/24/18 14:15 Intake & Output 02/23/18 02/24/18 02/24/18 18:59 06:59 18:59 Intake Total 790 0 338 Output Total 250 350 Balance 540 -350 338 Weight 86 kg Intake: Intake, IV Titration 440 0 Amount Azithromycin 500 mg In 250 0 Sodium Chloride 0.9% 250 ml @ 250 mls/hr IVPB DAILY [facility] Rx#:[id number] Sodium Chloride 0.9% 1, 0 000 ml @ 100 mls/hr IV . Q10H [facility] Rx#:[id number] Sodium Chloride 0.9% 1, 140 0 000 ml @ 20 mls/hr IV . Q24H [facility] Rx#:[id number] cefTRIAXone 1,000 mg In 50 0 Sodium Chloride 0.9% 50 ml @ 100 mls/hr IVPB Q24H [facility] Rx#:[id number] Oral 350 0 338 Tube Feeding 0 Blood Product 0 Other 0 Output: Urine 250 350 Other: Voiding Method Urinal # Voids 1 2 - Exam Gen. appearance she is calm and comfortable likely distress. Head exam was generally normal. There was no scleral icterus or corneal arcus. Mucous membranes were moist. Neck was supple and without jugular venous distension, thyromegaly, or carotid bruits. Carotids were easily palpable bilaterally. There was no adenopathy. Lungs sounds are diminished bilaterally along with prolongation of the expiratory phase of breathing and scattered expiratory wheezes of total lung lopez. Heart sounds are regular, no significant murmurs appreciated. Sternum stable clean and intact and the thoracotomy scar is dry and clean Abdominal exam revealed normal bowel sounds. The abdomen was soft, non-tender, and without masses, organomegaly, or appreciable enlargement of the abdominal aorta. Examination of the extremities revealed easily palpable radial, femoral and pedal pulses. There was no cyanosis, clubbing or edema. Examination of the skin revealed no evidence of significant rashes, suspicious appearing nevi or other concerning lesions. Neurologically the patient is awake and alert and is no focal neurological deficits. He is a poor historian. He is not aware of the details of previous medical needs and hospitalizations and treatments. - Labs CBC & Chem 7: 02/24/18 06:53 02/24/18 06:53 Labs: Abnormal Lab Results - Last 24 Hours (Table) 02/24/18 02/24/18 Range/Units 06:53 06:53 WBC 11.8 H (3.8-10.6) k/uL Plt Count 127 L (150-450) k/uL Neutrophils # 10.9 H (1.3-7.7) k/uL Lymphocytes # 0.6 L (1.0-4.8) k/uL Sodium 135 L (137-145) mmol/L Chloride 97 L (98-107) mmol/L Carbon Dioxide 31 H (22-30) mmol/L BUN 32 H (9-20) mg/dL Creatinine 0.60 L (0.66-1.25) mg/dL Glucose 134 H (74-99) mg/dL Assessment and Plan Assessment: Assessment 1 acute left lower lobe pneumonia, likely community-acquired, with a small left- sided pleural effusion 2 acute COPD exacerbation secondary to left lower lobe pneumonia 3 chronic COPD, likely severe with oxygen dependence at 2 L per minute nasal cannula 4 coronary artery disease with recent coronary bypass surgery 5 smoker 6 hypertension 7 suspected history of atrial fibrillation current rhythm is sinus. The patient is on no anticoagulation 8 poor historian, suspect underlying dementia 9 hyperlipidemia Plan The patient was seen and evaluated by Dr. Dubose. The patient is cleared for discharge from the pulmonary standpoint. Complete her course of antibiotics. Complete a prednisone taper. Continue Symbicort and DuoNeb inhalations. The patient should follow-up in our office post discharge. We'll perform a pulmonary function test to evaluate the severity of his COPD and make further recommendations at that time. He is again educated regarding the importance of complete smoking cessation. Continue NicoDerm patch. I, the cosigning physician, performed a history & physical examination of the patient. Lungs sounds with bilateral wheeze, diminished. Maintaining good O2 saturations in the 90s on room air. I discussed the assessment and plan of care with my nurse practitioner, Mary Lopez. I attest to the above note as dictated by her.
[2018-02-24] MEDS ORDERED: predniSONE 20 MG TAB PO SCH (16:00)
--- NOTE | 2018-02-26 14:22 | XR ---
EXAMINATION TYPE: XR chest 2V DATE OF EXAM: 02/23/2018 COMPARISON: Prior chest x-ray 02/21/2018 HISTORY: Left lower lobe pneumonia TECHNIQUE: Frontal and lateral views of the chest are obtained. FINDINGS: Increased density persists at the left lung base, the left hemidiaphragm is obscured. Stra nd-like densities are present bilaterally suggesting interstitial lung disease. Patient is post media n sternotomy. Heart size is stable. No evident pneumothorax. Increased AP diameter chest compatible w ith underlying COPD. IMPRESSION: Left lower lobe atelectasis and associated effusion versus pneumonia.
== END 2018-02-24 17:00 | disposition home or self-care (01) | DRG 193 ==
LOC: 4SSUR 02-21 00:16
PROVIDERS: ADMIT Hospitalist; ATTEND Hospitalist
DX: J18.9 Pneumonia, unspecified organism (principal); J96.22 Acute and chronic respiratory failure with hypercapnia; J44.1 Chronic obstructive pulmonary disease with (acute) exacerbation; E87.1 Hypo-osmolality and hyponatremia; J44.0 Chronic obstructive pulmonary disease with (acute) lower respiratory infection; E87.5 Hyperkalemia; I25.10 Atherosclerotic heart disease of native coronary artery without angina pectoris; E78.5 Hyperlipidemia, unspecified; I48.91 Unspecified atrial fibrillation; F17.210 Nicotine dependence, cigarettes, uncomplicated; I10 Essential (primary) hypertension; I25.2 Old myocardial infarction; Z99.81 Dependence on supplemental oxygen; Z95.1 Presence of aortocoronary bypass graft; Z79.51 Long term (current) use of inhaled steroids; Z79.899 Other long term (current) drug therapy; Z91.041 Radiographic dye allergy status
CPT/HCPCS: 71046; 80048; 80061; 85025; 85027; 94640; 94760

== ENCOUNTER 2018-03-03 10:03 | Inpatient (IN) | payer MEDICARE ==
--- NOTE | 2018-03-03 10:27 | ED ---
General Adult HPI - General Chief complaint: Shortness of Breath Stated complaint: ESTRELLA Source: patient, EMS Mode of arrival: EMS Limitations: no limitations - History of Present Illness Initial comments: Dictation was produced using [employer] dictation software. please excuse any grammatical, word or spelling errors. Chief Complaint: 67-year-old male transferred from [facility] for dyspnea. History of Present Illness: It is a 67-year-old male past medical history of coronary artery disease status post CABG presents with dyspnea. Patient states that he woke up severely dyspneic. Sought medical attention at [facility] in [place]. He was evaluated there. Patient recently had CABG performed. All of his primary physicians are in [place]. Patient does have a history of COPD. He is not sure if he has a history of congestive heart failure. Earlier this year patient had CABG performed. Denies any worsening of symptoms with lying flat. He does however have baseline swelling in his bilateral lower extremities. Chart review shows that patient was recently admitted for pulmonary infection. Patient was treated for hospital-acquired pneumonia and transferred here due to recent admission. The ROS documented in this emergency department record has been reviewed and confirmed by me. Those systems with pertinent positive or negative responses have been documented in the HPI. All other systems are other negative and/or noncontributory. - Related Data Home Medications Medication Instructions Recorded Confirmed Amiodarone HCl [Pacerone] 200 mg PO DAILY 02/21/18 02/21/18 Atorvastatin Calcium [Lipitor] 10 mg PO DAILY 02/21/18 02/21/18 Budesonide/Formoterol Fumarate 2 puff INHALATION BID 02/21/18 02/21/18 [Symbicort 160-4.5 Mcg Inhaler] Metoprolol Succinate (ER) [Toprol 25 mg PO DAILY 02/21/18 02/21/18 XL] Previous Rx's Medication Instructions Recorded Aspirin 81 mg PO DAILY chew 02/24/18 Azithromycin [Zithromax] 500 mg PO DAILY #3 tab 02/24/18 Pantoprazole [Protonix] 40 mg PO AC-BID #60 tablet. 02/24/18 predniSONE 40 mg PO DAILY #3 tab 02/24/18 Allergies Allergy/AdvReac Type Severity Reaction Status Date / Time Iodinated Contrast- Oral and AdvReac Rash/Hives Verified 02/21/18 08:45 IV Dye Review of Systems ROS Statement: Those systems with pertinent positive or pertinent negative responses have been documented in the HPI. ROS Other: All systems not noted in ROS Statement are negative. Past Medical History Past Medical History: Atrial Fibrillation, Coronary Artery Disease (CAD), COPD, Hyperlipidemia, Hypertension, Myocardial Infarction (CO) Last Myocardial Infarction Date:: 2007 History of Any Multi-Drug Resistant Organisms: None Reported Past Surgical History: Back Surgery Additional Past Surgical History / Comment(s): Coronary artery bypass surgery approximately 4 months ago, laparoscopic cholecystectomy, appendectomy and lower back surgery. Past Anesthesia/Blood Transfusion Reactions: No Reported Reaction Past Psychological History: No Psychological Hx Reported Smoking Status: Current every day smoker Past Alcohol Use History: None Reported Past Drug Use History: None Reported - Past Family History Father Family Medical History: No Reported History Mother Family Medical History: No Reported History General Exam - General Exam Comments Initial Comments: PHYSICAL EXAM: General Impression: Alert and oriented x3, not in acute distress HEENT: Normocephalic atraumatic, extra-ocular movements intact, pupils equal and reactive to light bilaterally, mucous membranes moist. Cardiovascular: Heart regular rate and rhythm, S1&S2 audible, no murmurs, rubs or gallops Chest: Diminished lung sounds bilaterally Abdomen: Bowel sounds present, abdomen soft, non-tender, non-distended, no organomegaly Musculoskeletal: Pulses present and equal in all extremities, 2+ pitting edema bilateral lower extremities Motor: Power 5/5 bilaterally, no focal deficits noted Neurological: CN II-XII grossly intact, no focal motor or sensory deficits noted Skin: Intact with no visualized rashes Psych: Normal affect and mood Limitations: no limitations Course Vital Signs 03/03/18 10:07 Pulse Rate 66 Respiratory 18 Rate Blood Pressure 155/94 O2 Sat by Pulse 99 Oximetry Medical Decision Making - Medical Decision Making ED course: 67-year-old male with recent history of CABG, recent admission for pneumonia presents to our hospital via EMS as a transfer her patient was seen and evaluated at [facility] where he was treated for hospital-acquired pneumonia. He was given breathing treatments as well. Stretcher for further care. Vital signs upon arrival are within acceptable limits. Patient states he does use oxygen at baseline. Patient otherwise feels well. Denies any pain complaints. There was concern that patient had recurrent for infection and was treated with broad-spectrum antibiotics. Chest with documents were reviewed. Patient's maintaining adequate saturation on supplemental oxygen. Patient be admitted to internal medicine with cardiology and pulmonology on consult. EKG interpretation: Ventricular rate 67, normal sinus rhythm, KY interval 164, Q 's 90, QTC 460. No KY prolongation, no QTC prolongation, no ST or T-wave changes noted. EKG compared to [default value] showing no changes. Overall, this EKG is unremarkable Disposition Clinical Impression: Congestive heart failure, Dyspnea Disposition: ADMITTED IP TO THIS HOSP Condition: Fair Referrals: Guerda Lubin, ELENA [Primary Care Provider] - 1-2 days Decision Time: 11:55
[2018-03-03] MEDS ORDERED: NALOXONE 0.4 MG/ML 1 ML VIAL IV PRN (11:53)
[2018-03-03] MEDS ORDERED: ACETAMINOPHEN TAB 500 MG TAB PO STA (13:05)
[2018-03-03] MEDS ORDERED: IPRATROPIUM-ALBUTEROL 3 ML NEB INHALATION PRN ×2 (13:53→18:08)
[2018-03-03] MEDS: ASPIRIN 81 MG PO SCH (15:37)
[2018-03-03] MEDS: ATORVASTATIN 80 MG TAB PO SCH (15:37)
--- NOTE | 2018-03-03 16:13 | ECHOF ---
Referral Reason:cad MEASUREMENTS -------- HEIGHT: 188.0 cm WEIGHT: 90.7 kg BP: RVIDd: 3.7 cm (< 3.3) IVSd: 1.9 cm (0.6 - 1.1) LVIDd: 3.5 cm (3.9 - 5.3) LVPWd: 1.6 cm (0.6 - 1.1) IVSs: 1.9 cm LVIDs: 3.0 cm LVPWs: 1.7 cm LA Diam: 4.3 cm (2.7 - 3.8) LAESV Index (A-L): 39.00 ml/m Ao Diam: 3.6 cm (2.0 - 3.7) AV Cusp: 1.3 cm (1.5 - 2.6) LA Diam: 5.2 cm (2.7 - 3.8) EPSS: 0.5 cm MV E Luis F: 0.97 m/s MV DecT: 113 ms MV A Luis F: 0.50 m/s MV E/A Ratio: 1.96 RAP: 5.00 mmHg RVSP: 62.46 mmHg MV EF SLOPE: 97.61 mm/s (70 - 150) MV EXCURSION: 1.57 cm (> 18.000) FINDINGS -------- Sinus rhythm. This was a technically difficult study with suboptimal views. The left ventricular size is normal. There is mild concentric left ventricular hypertrophy. Overa ll left ventricular systolic function is low-normal with, an EF between 50 - 55 %. Basal lateral LV wall motion is hypokinetic. Mid posterior LV wall motion is hypokinetic. The right ventricle is mildly enlarged. The right ventricular systolic function is mildly impaired. LA is moderately dilated 34-39 ml/m2 The right atrial size is normal. There is mild aortic valve sclerosis. There is no evidence of aortic regurgitation. Mild mitral annular calcification present. Moderate mitral regurgitation is present. Ybvg-[id number]-vjsnypeh tricuspid regurgitation present. There is moderate pulmonary hypertension. The r ight ventricular systolic pressure, as measured by Doppler, is 62.46mmHg. The pulmonic valve was not well visualized. There is no pulmonic regurgitation present. The aortic root size is normal. There is no pericardial effusion. CONCLUSIONS -------- 1. Sinus rhythm. 2. This was a technically difficult study with suboptimal views. 3. The left ventricular size is normal. 4. There is mild concentric left ventricular hypertrophy. 5. Overall left ventricular systolic function is low-normal with, an EF between 50 - 55 %. 6. Basal lateral LV wall motion is hypokinetic. 7. Mid posterior LV wall motion is hypokinetic. 8. The right ventricle is mildly enlarged. 9. The right ventricular systolic function is mildly impaired. 10. LA is moderately dilated 34-39 ml/m2 11. There is mild aortic valve sclerosis. 12. Mild mitral annular calcification present. 13. Moderate mitral regurgitation is present. 14. Ubqg-yd-[id number] tricuspid regurgitation present. 15. There is moderate pulmonary hypertension. 16. There is no pulmonic regurgitation present. 17. The aortic root size is normal. 18. There is no pericardial effusion. SERVICE TEAM LEADER: Michelle Beck RDCS
[2018-03-03] MEDS ORDERED: ACETAMINOPHEN TAB 500 MG TAB PO PRN (18:06)
[2018-03-03] MEDS ORDERED: HYDROmorphone 1 MG/ML 1 ML SYRINGE IVP PRN (18:09)
[2018-03-03] MEDS ORDERED: ALPRAZolam 0.25 MG TAB PO PRN (18:09)
--- NOTE | 2018-03-03 18:28 | XR ---
EXAMINATION TYPE: XR chest 1V portable DATE OF EXAM: 03/03/2018 CLINICAL HISTORY: Pneumonia and CHF TECHNIQUE: Single AP portable frontal view of the chest is obtained. COMPARISON: Chest x-ray from 8 days earlier FINDINGS: Overlying sternal wires and mediastinal clips are redemonstrated. There is chronic parench ymal changes seen bilaterally with increasing left mid and lower lung opacities. There is patchy righ t medial basilar opacity on current study. Osseous structures remain demineralized. Diminished inspir ation on current study is noted. Cardiac silhouette size is upper limits of normal. IMPRESSION: Chronic parenchymal change with worsening left mid to lower lung infiltrate and/or atelec tasis and probable persistent small left pleural effusion. New medial right basilar atelectasis and/o r infiltrate is noted.
[2018-03-03] MEDS: methylPREDNISolone SOD SUCCI 125 MG/2 ML VIAL IV SCH ×2 (18:55→23:03)
[2018-03-03] MEDS: FUROSEMIDE 10 MG/ML 4 ML VIAL IV SCH ×2 (18:58→23:03)
[2018-03-03] MEDS: CEFEPIME 2 GM in SODIUM CHLORIDE 0.9% 50 ML IVPB SCH (18:58)
[2018-03-03 20:26] LABS: Basophils % (A) 0 %; Eosinophils % (A) 0 %; HCT 37.6 % (39.0-53.0); HGB 11.8 gm/dL (13.0-17.5); Hypochromasia Slight; Lymphocytes # (A) 0.5 k/uL (1.0-4.8); Lymphocytes % (A) 5 %; MCH 29.6 pg (25.0-35.0); MCHC 31.4 g/dL (31.0-37.0); MCV 94.2 fL (80.0-100.0); Mean Platelet Volume 7.6; Monocytes # (A) 0.2 k/uL (0-1.0); Monocytes % (A) 2 %; Neutrophils % (A) 93 %; RBC 3.99 m/uL (4.30-5.90); RDW 15.4 % (11.5-15.5); WBC 10.8 k/uL (3.8-10.6)
[2018-03-03 20:38] LABS: ALT 52 U/L (21-72); AST 45 U/L (17-59); Alkaline Phosphatase 71 U/L (38-126); Anion Gap 4 mmol/L; Blood Urea Nitrogen 41 mg/dL (9-20); Calcium 8.6 mg/dL (8.4-10.2); Carbon Dioxide 35 mmol/L (22-30); Chloride 95 mmol/L (98-107); Glucose 125 mg/dL (74-99); Potassium 4.4 mmol/L (3.5-5.1); Sodium 134 mmol/L (137-145); Total Bilirubin 0.5 mg/dL (0.2-1.3); Total Protein 5.3 g/dL (6.3-8.2)
[2018-03-03] MEDS: IPRATROPIUM-ALBUTEROL 3 ML NEB INHALATION SCH (20:46)
[2018-03-03 20:48] LABS: Glucose,Whole Blood 131 mg/dL (75-99)
[2018-03-03] MEDS ORDERED: NON-FORMULARY DRUG (Simvastatin 40 MG) PO SCH (21:00)
[2018-03-03] MEDS: HYDROcodone/APAP 5-325MG 1 EACH TAB PO PRN (21:01)
[2018-03-03] MEDS: INSULIN ASPART 100 UNIT/ML 1 ML 10 ML VIAL SQ SCH (21:03)
[2018-03-03] MEDS: HEPARIN SODIUM,PORCINE 5,000 UNIT/ML 1 ML VIAL SQ SCH (21:03)
[2018-03-03] MEDS: LISINOPRIL 5 MG TAB PO SCH (21:03)
--- NOTE | 2018-03-03 21:32 | HP ---
HISTORY AND PHYSICAL CHIEF COMPLAINT: Shortness of breath. HISTORY OF PRESENT ILLNESS: This 67-year-old gentleman with a past medical history of multiple medical problems, atrial fibrillation, CAD, COPD, hypertension, hyperlipidemia, history of back surgery being followed by Dr. Sia Aguilar. The patient was recently admitted to [facility] for COPD acute exacerbation. The patient improved significantly. Patient went home. Currently the patient is complaining of shortness of breath and patient apparently went to [facility] in [place] and the patient was admitted for further evaluation and treatment. The pneumonia was suspected and possible acute pneumonia is also suspected. Patient was transferred to [facility] and admitted for further evaluation and treatment. There is no history of fever, rigors or chills. No history of headache, loss of consciousness, seizures. PAST MEDICAL HISTORY: History of atrial fibrillation, CAD, COPD, hypertension, hyperlipidemia, myocardial infarction. MEDICATIONS: Prior to admission: 1. Prednisone daily. 2. Zocor 40 mg q.h.s. 3. Protonix 40 mg b.i.d. 4. Toprol XL 25 mg b.i.d. 5. Motrin 800 mg t.i.d. 6. Lasix 20 mg daily. 7. Colace 100 mg daily. 8. Symbicort 160/12.5 two puffs b.i.d. 9. Lipitor 10 mg p.r.n. 10.Pacerone 200 mg. 11.Tylenol p.r.n. ALLERGIES: IODINATED CONTRAST DYES. FAMILY HISTORY: No history of heart disease or strokes in the family. SOCIAL HISTORY: History of smoking. No history of alcohol intake. REVIEW OF SYSTEMS: ENT: Diminished vision. Diminished hearing. Cardiovascular: No angina. RESPIRATORY: As mentioned earlier. GI: No nausea or vomiting. no dysuria. Central nervous system: No numbness or weakness. ALLERGY/IMMUNOLOGY: No asthma or hayfever. MUSCULOSKELETAL: As mentioned earlier. Hematology/Oncology: No history of anemia. ENDOCRINE: No history of diabetes or hypothyroidism. CONSTITUTIONAL: As mentioned earlier. Dermatology: Negative. Rheumatology: Negative. Psychiatry: As mentioned earlier. PHYSICAL EXAMINATION: The patient is alert, oriented x3. Extremely short of breath. Pulse 72, blood pressure 144/89, respiration 17, temperature is normal. Pulse ox 98% on 3 L. HEENT is conjunctivae normal. Oral mucosa moist. Neck is no jugular venous distention. No carotid bruit. No lymph node enlargement. Cardiovascular: S1, S2 muffled. Respiratory: Breath sounds diminished in the bases. Bilateral scattered rhonchi and crackles. Expiratory wheezing also present. ABDOMEN: Soft, nontender. No mass palpable. Chest emphysematous. LEGS: No edema and no swelling. NERVOUS SYSTEM: Higher functions as mentioned earlier. Moves all four limbs. No focal motor or sensory deficits. SKIN: No ulcer, rash or bleeding. LAB: Pending at this time. ASSESSMENT: 1. Chronic obstructive pulmonary disease exacerbation with possible bilateral pneumonia hospital acquired. 2. History of coronary artery disease, coronary artery bypass grafting. 3. History of atrial fibrillation. 4. Chronic obstructive pulmonary disease. 5. Hypertension. 6. Hyperlipidemia. 7. History of myocardial infarction. 8. Back pain, degenerative joint disease. 9. History of appendectomy. 10.History of laparoscopic cholecystectomy. 11.Continued ongoing nicotine dependence. RECOMMENDATIONS AND DISCUSSION: In this 67-year-old gentleman who presented with multiple complex medical issues, we will monitor the patient closely. Continue the current medications, management and symptomatic treatment. We will initiate Cefepime because of the concerns of hospital acquired pneumonia. Otherwise bronchodilators and Dr. Dunlap and Cardiology will be consulted. Resume the home medications. Optimize bronchodilator treatment. Prognosis guarded because of multiple complex medical issues. Further recommendations to follow. MMODL / IJN: [id number] /
[2018-03-03 21:45] LABS: Platelet Count 91 k/uL (150-450)
--- NOTE | 2018-03-03 22:32 | CONS ---
CONSULTATION Mr. Sloan is a 67-year-old male who was transferred from [facility] because of symptoms of progressive dyspnea. The patient has a known history of coronary artery disease, underwent coronary bypass grafting in [place] 4 months ago according to her and he was discharged from here very recently. He woke up getting quite short of breath and coughing, wheezing. The patient has a known history of chronic obstructive lung disease and used to smoke 2 packs a day up to very recently. He denies any chest pain. No dizziness. No palpitation. He has peripheral edema. No clear PND. He has no palpitation or syncope. Apparently post surgically, he had an episode of atrial fibrillation, but he is in sinus mechanism at this time. I do not have any evaluation of his left ventricular systolic function. His coronary risk factors are positive for the chronic tobacco use, hypertension, hyperlipidemia. He is non diabetic. MEDICATION: Includes amiodarone 200 mg daily, Lipitor 10 mg daily, Lasix 20 mg daily, metoprolol succinate 25 mg daily, Protonix. The list that is available to me does not have aspirin or anticoagulation on it. REVIEW OF SYSTEMS: RESPIRATORY system: He has a history of chronic tobacco use and chronic obstructive lung disease. The dyspnea on exertion. GI system: No recent GI bleeding. No peptic ulcer disease. system: No dysuria or hematuria. Nervous system: No history of seizure. PHYSICAL EXAMINATION: He is a 67-year-old male, alert, oriented, moderately dyspneic, appears older than stated age. Blood pressure 155/90 with a heart rate in the 60s. HEAD: Normocephalic. Eyes: Sclerae anicteric. Neck: Good upstroke. No bruit. Lungs with severe decrease in the air exchange with scattered rhonchi. HEART: Regular rate and rhythm S1, S2. No S3 with systolic murmur. No diastolic murmur. No rub. ABDOMEN: Soft, nontender. Positive bowel sounds. No organomegaly. Extremities: 2+ edema bilaterally. LAB DATA: EKG reveals sinus mechanism, normal axis and intervals. Normal echocardiogram. His renal function at [facility] was normal. He had elevation of his BNP. IMPRESSION: 1. Symptoms of progressive dyspnea, probably a combination of worsening COPD and possible pneumonia with the element of congestive heart failure. His left ventricular systolic function is not available to me. 2. History of coronary artery disease status post coronary artery bypass grafting done 4 months ago. 3. Chronic tobacco use up to recently with chronic obstructive lung disease. 4. Hypertension. 5. Hyperlipidemia. RECOMMENDATION: I will obtain an echocardiogram with Doppler. I will stop his amiodarone. I will put him on IV Lasix as well as nitrate and beta hayley, and statin. Depending on his progress, further recommendations will be made. Thank you for this consult. We will follow with you. MMMIRIL / IJN: [id number] /
[2018-03-04] MEDS: CEFEPIME 2 GM in SODIUM CHLORIDE 0.9% 50 ML IVPB SCH ×3 (01:12→18:02)
[2018-03-04 05:57] LABS: Glucose,Whole Blood 151 mg/dL (75-99)
[2018-03-04 06:10] LABS: Basophils % (A) 0 %; Eosinophils % (A) 0 %; HCT 34.9 % (39.0-53.0); Hypochromasia Slight; Lymphocytes # (A) 0.4 k/uL (1.0-4.8); Lymphocytes % (A) 4 %; MCH 29.8 pg (25.0-35.0); MCHC 31.5 g/dL (31.0-37.0); MCV 94.4 fL (80.0-100.0); Monocytes # (A) 0.2 k/uL (0-1.0); Monocytes % (A) 2 %; Neutrophils # (A) 9.6 k/uL (1.3-7.7); Neutrophils % (A) 93 %; RDW 15.5 % (11.5-15.5); WBC 10.3 k/uL (3.8-10.6)
[2018-03-04] MEDS: methylPREDNISolone SOD SUCCI 125 MG/2 ML VIAL IV SCH ×3 (06:10→18:02)
[2018-03-04] MEDS: PANTOPRAZOLE 40 MG TABLET PO SCH ×2 (06:11→18:02)
[2018-03-04] MEDS: INSULIN ASPART 100 UNIT/ML 1 ML 10 ML VIAL SQ SCH ×4 (06:13→21:31)
[2018-03-04 06:20] LABS: Platelet Count 81 k/uL (150-450)
[2018-03-04 06:26] LABS: Anion Gap 4 mmol/L; Blood Urea Nitrogen 41 mg/dL (9-20); Calcium 8.2 mg/dL (8.4-10.2); Carbon Dioxide 39 mmol/L (22-30); Chloride 93 mmol/L (98-107); Cholesterol 122 mg/dL (<200); Glucose 144 mg/dL (74-99); HDL Cholesterol 43 mg/dL (40-60); LDL Cholesterol,Calculated 54 mg/dL (0-99); Potassium 3.6 mmol/L (3.5-5.1); Sodium 136 mmol/L (137-145); Triglycerides 126 mg/dL (<150)
[2018-03-04 07:30] LABS: T4, Free (Free Thyroxine) 1.16 ng/dL (0.78-2.19)
[2018-03-04] MEDS: IPRATROPIUM-ALBUTEROL 3 ML NEB INHALATION SCH ×4 (07:43→20:03)
[2018-03-04] MEDS ORDERED: AMIODARONE 200 MG TAB PO SCH (09:00)
[2018-03-04] MEDS: ATORVASTATIN 80 MG TAB PO SCH (09:49)
[2018-03-04] MEDS: FUROSEMIDE 10 MG/ML 4 ML VIAL IV SCH ×2 (09:49→18:02)
[2018-03-04] MEDS: NICOTINE 14MG/24HR PATCH TRANSDERM SCH (09:49)
[2018-03-04] MEDS: HEPARIN SODIUM,PORCINE 5,000 UNIT/ML 1 ML VIAL SQ SCH ×2 (09:49→21:31)
[2018-03-04] MEDS: LISINOPRIL 5 MG TAB PO SCH ×2 (09:50→21:31)
[2018-03-04] MEDS: METOPROLOL SUCCINATE (ER) 25 MG TAB.ER.24H PO SCH (09:50)
[2018-03-04] MEDS: DOCUSATE 100 MG CAP PO SCH (09:50)
[2018-03-04] MEDS: ASPIRIN 81 MG PO SCH (09:50)
[2018-03-04] MEDS: CLOPIDOGREL 75 MG TAB PO SCH (09:50)
[2018-03-04] MEDS: HYDROcodone/APAP 5-325MG 1 EACH TAB PO PRN (09:58)
[2018-03-04 11:22] LABS: Glucose,Whole Blood 155 mg/dL (75-99)
--- NOTE | 2018-03-04 12:15 | PN ---
PROGRESS NOTE Mr. Sloan is a 67-year-old male status post coronary artery bypass grafting that was performed 4 months ago in [place], history of chronic tobacco use, who presented with symptoms of progressive dyspnea. He is feeling much better today. His breathing is better. He denies any chest pain. No dizziness or palpitation. He continues to be in sinus mechanism. His echocardiogram revealed an ejection fraction of 50% to 55% with moderate mitral and [id number] tricuspid regurgitation with moderate pulmonary hypertension. He continues to be on amiodarone 200 mg daily, aspirin 81 mg daily Lipitor 80 mg daily, Plavix 75 mg daily, Lasix 40 mg IV q.8 hours, lisinopril 5 mg twice a day, metoprolol 25 mg daily. PHYSICAL EXAMINATION: Blood pressure 136/70 with a heart rate in the 70. Lungs with decreased air exchange. No wheezes. HEART: Regular rate and rhythm S1, S2. No S3. No rub or gallop with a systolic murmur heard at the base. ABDOMEN: Soft, nontender. EXTREMITIES: No edema. LAB DATA: Revealed BUN and creatinine 41 and 0.63, potassium 3.6, hemoglobin of 11. IMPRESSION: 1. Symptoms of progressive dyspnea on exertion with an element of congestive heart failure and fluid overload. 2. Chronic obstructive lung disease and chronic tobacco use up to recently. 3. Episode of atrial fibrillation post surgery that continued to be in sinus mechanism at this time. 4. Mitral regurgitation. RECOMMENDATION: His CHF appears to be diastolic dysfunction, CHF and element of pulmonary hypertension. I will stop the amiodarone. Patient continued to be in sinus mechanism. We will continue intravenous diuretics for another 24 hours and if he is stable, will switch him to oral diuretics. I will try to obtain the report of his prior workup from [place]. I will start him on a potassium supplementation because of the diuretics. We will increase his level of activity and depending on his progress, further recommendations will be made. MMODL / IJN: [id number] /
[2018-03-04] MEDS: POTASSIUM CHLORIDE ER 20 MEQ TAB.ER PO SCH (12:40)
[2018-03-04 16:29] LABS: Glucose,Whole Blood 161 mg/dL (75-99)
--- NOTE | 2018-03-04 19:48 | PN ---
PROGRESS NOTE DATE OF SERVICE: 03/04/2018 This 67-year-old gentleman who was admitted with shortness of breath had possible COPD and bilateral pneumonia, left more than the right. Patient on broad spectrum IV antibiotics. Healthcare-associated pneumonia is considered. Multiple consultants including Cardiology and Pulmonology are evaluating the patient at this time. Chest x- ray was reviewed. PAST MEDICAL HISTORY: Reviewed. REVIEW OF SYSTEMS: CARDIOVASCULAR: No angina. RESPIRATORY: As mentioned earlier. GI: As mentioned. : No dysuria. NERVOUS SYSTEM: No numbness or weakness. CURRENT MEDICATIONS: Reviewed and include: 1. Tylenol a 1000 q.6h p.r.n. 2. Dillwyn 5 mg q.6h p.r.n. 3. DuoNeb q.i.d. and p.r.n. 4. Xanax 0.5 t.i.d. 5. Aspirin 81 mg p.o. daily. 6. Lipitor 80 mg p.o. daily. 7. Cefepime 2 g IV q.8h. 8. Plavix 75 mg p.o. daily. 9. Colace 100 mg b.i.d. 10.Lasix 40 mg IV q.8h. 11.Heparin 5 subcu b.i.d. 12.Dilaudid p.r.n. 13.NovoLog a.c. and at bedtime. 14.Zestril 5 mg p.o. daily. 15.Solu-Medrol 60 IV q.6h. 16.Narcan. 17.Habitrol 14 daily. 18.K-Dur 10 mEq p.o. daily. 19.Restoril 50 mg q.h.s. p.r.n. PHYSICAL EXAM: Patient is alert, oriented x3. The pulse is 70, blood pressure is 128/66, respiration 16, temperature is 97.6, pulse ox 94% on 3 L. HEENT: Conjunctivae normal. Oral mucosa moist. Neck is no jugular venous distention. No carotid bruit. No lymph node enlargement. CARDIOVASCULAR: S1, S2. RESPIRATORY: Breath sounds diminished in the bases. Bilateral scattered rhonchi and crackles, expiratory wheezing also present left more than the right. ABDOMEN: Soft, nontender. No mass palpable. LEGS: No edema. NERVOUS SYSTEM: Diffusely weak. LAB STUDIES: WBC 10.3, hemoglobin 11, platelets 81. Sodium 130, potassium 9.6. ASSESSMENT: 1. Chronic obstructive pulmonary disease acute exacerbation with possible bilateral pneumonia, left more than right. 2. Possibly hospital acquired pneumonia. 3. Congestive heart failure with possibly acute on chronic diastolic dysfunction, ejection fraction 50-55%. 4. Coronary artery disease, CABG. 5. History atrial fibrillation. 6. Chronic obstructive pulmonary disease. 7. Hypertension. 8. Hyperlipidemia. 9. History of myocardial infarction. 10.History of back pain and degenerative joint disease. 11.History of appendectomy. 12.History laparoscopic cholecystectomy. 13.Continued ongoing nicotine dependence. 14.Hyponatremia mild. 15.Thrombocytopenia of undetermined etiology. RECOMMENDATIONS AND DISCUSSION: I recommend to continue current management and symptomatic treatment. The chest x-ray was reviewed. Continue with bronchodilators. Continue with steroids. Continue the broad-spectrum IV antibiotics. Follow the cultures. Otherwise we will also monitor closely with Pulmonary and Cardiology. The patient is on IV Lasix as well. Continue to monitor patient and continue with IV steroids the same dose. Monitor Accu-Cheks closely. Further recommendations to follow. MMODL / IJN: [id number] /
[2018-03-04 21:12] LABS: Glucose,Whole Blood 182 mg/dL (75-99)
[2018-03-05] MEDS: FUROSEMIDE 10 MG/ML 4 ML VIAL IV SCH ×2 (00:12→08:13)
[2018-03-05] MEDS: methylPREDNISolone SOD SUCCI 125 MG/2 ML VIAL IV SCH ×5 (00:12→22:46)
[2018-03-05] MEDS: CEFEPIME 2 GM in SODIUM CHLORIDE 0.9% 50 ML IVPB SCH ×3 (01:00→18:15)
[2018-03-05] MEDS: HYDROcodone/APAP 5-325MG 1 EACH TAB PO PRN ×3 (01:01→20:07)
[2018-03-05] MEDS: PANTOPRAZOLE 40 MG TABLET PO SCH ×2 (06:06→18:15)
[2018-03-05] MEDS: INSULIN ASPART 100 UNIT/ML 1 ML 10 ML VIAL SQ SCH ×4 (06:06→22:41)
[2018-03-05 06:12] LABS: Glucose,Whole Blood 160 mg/dL (75-99)
[2018-03-05 06:39] LABS: Basophils % (A) 0 %; Eosinophils % (A) 0 %; HCT 34.9 % (39.0-53.0); Hypochromasia Slight; Lymphocytes # (A) 0.4 k/uL (1.0-4.8); Lymphocytes % (A) 4 %; MCH 29.2 pg (25.0-35.0); MCHC 31.6 g/dL (31.0-37.0); MCV 92.5 fL (80.0-100.0); Mean Platelet Volume 7.9; Monocytes # (A) 0.4 k/uL (0-1.0); Monocytes % (A) 3 %; Neutrophils # (A) 10.8 k/uL (1.3-7.7); Neutrophils % (A) 93 %; RBC 3.77 m/uL (4.30-5.90); RDW 15.4 % (11.5-15.5); WBC 11.7 k/uL (3.8-10.6)
[2018-03-05 06:46] LABS: Platelet Count 89 k/uL (150-450)
[2018-03-05] MEDS: IPRATROPIUM-ALBUTEROL 3 ML NEB INHALATION SCH ×4 (07:10→20:31)
[2018-03-05 07:28] LABS: Blood Urea Nitrogen 47 mg/dL (9-20); Calcium 8.4 mg/dL (8.4-10.2); Chloride 90 mmol/L (98-107); Glucose 133 mg/dL (74-99); Sodium 136 mmol/L (137-145)
[2018-03-05 07:34] LABS: Anion Gap 2 mmol/L
[2018-03-05 07:42] LABS: Carbon Dioxide 44 mmol/L (22-30)
[2018-03-05] MEDS: POTASSIUM CHLORIDE ER 20 MEQ TAB.ER PO SCH (08:12)
[2018-03-05] MEDS: ATORVASTATIN 80 MG TAB PO SCH (08:12)
[2018-03-05] MEDS: CLOPIDOGREL 75 MG TAB PO SCH (08:12)
[2018-03-05] MEDS: DOCUSATE 100 MG CAP PO SCH (08:12)
[2018-03-05] MEDS: LISINOPRIL 5 MG TAB PO SCH ×2 (08:12→20:07)
[2018-03-05] MEDS: ASPIRIN 81 MG PO SCH (08:13)
[2018-03-05] MEDS: HEPARIN SODIUM,PORCINE 5,000 UNIT/ML 1 ML VIAL SQ SCH (08:13)
[2018-03-05] MEDS: METOPROLOL SUCCINATE (ER) 25 MG TAB.ER.24H PO SCH (08:13)
[2018-03-05] MEDS: NICOTINE 14MG/24HR PATCH TRANSDERM SCH (08:30)
[2018-03-05 09:12] LABS: Hemoglobin A1C 5.8 % (4.0-6.0)
[2018-03-05 11:47] LABS: Glucose,Whole Blood 181 mg/dL (75-99)
--- NOTE | 2018-03-05 12:49 | P.PN ---
Subjective Progress Note Date: 03/05/18 This is a 67-year-old gentleman who was initially transferred here from [facility] with symptoms of progressive dyspnea. Patient has known history of coronary artery disease with prior bypass surgery approximately 4 months ago, he presented to the hospital with symptoms of shortness of breath, productive cough and wheezing. Patient also has a known history of COPD and used to smoke 2 packs a day until very recently. The patient was seen in consultation yesterday by Dr. Stone, felt to have some mild congestive cardiac failure. His weight today is down 2 kg, he still continues to have scattered wheezing. Echocardiogram with Doppler study revealed an ejection fraction of 50-55%, moderate MR, mild to moderate TR. Pressure 142/70 with a heart rate in the 80s, 96% on 3 L of oxygen. White blood cell count 11.7, hemoglobin 11.0, platelet count 89. Sodium 136, potassium 4.0, BUN 47, creatinine 0.7. Patient does have a history of atrial fibrillation post surgery, again last evening went back into [facility] and continues to be in atrial fibrillation this morning. He did have a history of left atrial appendage closure, he will require anticoagulation. Objective - Vital Signs Vital signs: Vital Signs Temp 97.6 F 03/05/18 08:00 Pulse 84 03/05/18 11:15 Resp 16 03/05/18 08:00 BP 143/75 03/05/18 08:00 Pulse Ox 96 03/05/18 08:00 Intake & Output 03/04/18 03/05/18 03/05/18 18:59 06:59 18:59 Intake Total 462 240 Output Total 1200 1800 Balance -738 -1800 240 Weight 88.4 kg Intake: Oral 462 240 Output: Urine 1200 1800 Other: Voiding Method Toilet Toilet Urinal Urinal - Exam PHYSICAL EXAMINATION: GENERAL: 67-year-old gentleman in no acute distress at the time of my examination HEENT: Head is atraumatic, normocephalic. Pupils equal, round. Sclera anicteric. Conjunctiva are clear. Mucous membranes of the mouth are moist. Neck is supple. There is no elevated jugular venous pressure. No carotid bruit is heard. HEART EXAMINATION: Heart S1 S2 1 systolic murmur is heard. CHEST EXAMINATION: His reveal scattered wheezing throughout. ABDOMEN: Soft, nontender. Bowel sounds are heard. No organomegaly noted. EXTREMITIES: 2+ peripheral pulses with no evidence of peripheral edema and no calf tenderness noted. NEUROLOGIC patient is awake, alert and oriented X3. . - Labs CBC & Chem 7: 03/05/18 05:55 03/05/18 05:55 Labs: Abnormal Lab Results - Last 24 Hours (Table) 03/04/18 03/04/18 03/05/18 Range/Units 16:27 21:11 05:55 WBC 11.7 H (3.8-10.6) k/uL RBC 3.77 L (4.30-5.90) m/uL Hgb 11.0 L (13.0-17.5) gm/dL Hct 34.9 L (39.0-53.0) % Plt Count 89 L (150-450) k/uL Neutrophils # 10.8 H (1.3-7.7) k/uL Lymphocytes # 0.4 L (1.0-4.8) k/uL Sodium (137-145) mmol/L Chloride (98-107) mmol/L Carbon Dioxide (22-30) mmol/L BUN (9-20) mg/dL Glucose (74-99) mg/dL POC Glucose (mg/dL) 161 H 182 H (75-99) mg/dL 03/05/18 03/05/18 03/05/18 Range/Units 05:55 06:02 11:43 WBC (3.8-10.6) k/uL RBC (4.30-5.90) m/uL Hgb (13.0-17.5) gm/dL Hct (39.0-53.0) % Plt Count (150-450) k/uL Neutrophils # (1.3-7.7) k/uL Lymphocytes # (1.0-4.8) k/uL Sodium 136 L (137-145) mmol/L Chloride 90 L (98-107) mmol/L Carbon Dioxide 44 H* (22-30) mmol/L BUN 47 H (9-20) mg/dL Glucose 133 H (74-99) mg/dL POC Glucose (mg/dL) 160 H 181 H (75-99) mg/dL Assessment and Plan Plan: Assessment and plan #1 symptoms of progressive dyspnea likely combination of COPD exacerbation with associated pneumonia and element of mild diastolic acute on chronic congestive heart failure. Echocardiogram with Doppler study revealed an ejection fraction of 50-55%, basal lateral and mid posterior wright were hypokinetic. #2 paroxysmal atrial fibrillation, patient currently in atrial fibrillation #3 hypertension #4 hyperlipidemia #5 history of coronary artery bypass grafting surgery approximately 4 months ago at which time patient underwent left atrial appendage closure as well. Plan We will add Eliquis 5 mg one tablet by mouth twice a day to the patient's medication regime, discontinue IV Lasix and manager exchange to oral diuretics. DNP note has been reviewed, I agree with a documented findings and plan of care. Patient was seen and examined.
[2018-03-05] MEDS: APIXABAN 5 MG TAB PO SCH ×2 (14:03→20:06)
[2018-03-05] MEDS: FUROSEMIDE 40 MG TAB PO SCH (15:42)
--- NOTE | 2018-03-05 16:16 | P.CNPUL ---
History of Present Illness Consult date: 03/05/18 Reason for consult: dyspnea, cough, hypoxemia, pneumonia, abnormal CXR/CT Chief complaint: Shortness of breath, pneumonia, cough, phlegm History of present illness: Pulmonary/critical care consult dated 03/05/2018 This is a 67-year-old male who was seen in the emergency room on March 03. He apparently went into the hospital up in [facility] and there he was shipped down to [facility]. Apparently the patient was recently inpatient here for COPD exacerbation and pneumonia. The patient has a history of CAD with previous bypass grafting, and complains of a couple days with of increasing shortness of breath chest congestion coughing wheezing and some phlegm production. He sees a PA up in the [place] area. In addition, secondary to heavy tobacco use, he does have a history of COPD as well as a history of heart failure. The patient was evaluated in the emergency room and was thought to possibly have healthcare acquired pneumonia since he was recently inpatient here. The patient's major complaints include shortness of breath chest congestion coughing and phlegm production. The patient was laying flat in bed. He did have nasal O2 in place. He appears to be relatively comfortable. His chest x-ray did show a worsening infiltrate in the mid to lower left lung lopez as well as in the right basilar area. Review of Systems A 14 point review of system is positive for chest congestion coughing wheezing shortness of breath and phlegm production. Past Medical History Past Medical History: Atrial Fibrillation, Coronary Artery Disease (CAD), COPD, Hyperlipidemia, Hypertension, Myocardial Infarction ([place]) Last Myocardial Infarction Date:: 2007 History of Any Multi-Drug Resistant Organisms: None Reported Past Surgical History: Back Surgery Additional Past Surgical History / Comment(s): Coronary artery bypass surgery approximately 4 months ago, laparoscopic cholecystectomy, appendectomy and lower back surgery. Past Anesthesia/Blood Transfusion Reactions: No Reported Reaction Past Psychological History: No Psychological Hx Reported Smoking Status: Former smoker Past Alcohol Use History: None Reported Past Drug Use History: None Reported - Past Family History Father Family Medical History: No Reported History Mother Family Medical History: No Reported History Medications and Allergies Home Medications Medication Instructions Recorded Confirmed Type Amiodarone HCl [Pacerone] 200 mg PO DAILY 02/21/18 03/03/18 History Atorvastatin Calcium [Lipitor] 10 mg PO DIRECTED 02/21/18 03/03/18 History Budesonide/Formoterol Fumarate 2 puff INHALATION RT-BID 02/21/18 03/03/18 History [Symbicort 160-4.5 Mcg Inhaler] Metoprolol Succinate (ER) [Toprol 25 mg PO DAILY 02/21/18 03/03/18 History XL] Pantoprazole [Protonix] 40 mg PO AC-BID #60 tablet.dr 02/24/18 03/03/18 Rx Acetaminophen Tab [Tylenol Tab] 1,000 mg PO Q6HR PRN 03/03/18 03/03/18 History Docusate [Colace] 100 mg PO DAILY 03/03/18 03/03/18 History Furosemide [Lasix] 20 mg PO DAILY 03/03/18 03/03/18 History Ibuprofen [Motrin] 800 mg PO TID PRN 03/03/18 03/03/18 History Simvastatin [Zocor] 40 mg PO HS 03/03/18 03/03/18 History predniSONE See Taper PO DAILY 03/03/18 03/03/18 History Allergies Allergy/AdvReac Type Severity Reaction Status Date / Time Iodinated Contrast- Oral and AdvReac Rash/Hives Verified 03/03/18 12:46 IV Dye Physical Exam Osteopathic Statement: *. No significant issues noted on an osteopathic structural exam other than those noted in the History and Physical/Consult. Vitals: Vital Signs Temp Pulse Pulse Resp BP Pulse Ox 03/05/18 15:44 97.8 F 67 18 113/73 97 03/05/18 12:00 98.1 F 115 H 18 119/67 96 03/05/18 11:15 84 03/05/18 11:04 92 03/05/18 08:00 97.6 F 69 16 143/75 96 03/05/18 07:22 70 03/05/18 07:10 72 03/05/18 03:49 98 F 70 20 132/70 98 03/05/18 00:00 75 18 142/80 97 03/04/18 20:16 72 03/04/18 20:04 70 03/04/18 20:00 97.8 F 71 18 122/70 96 03/04/18 16:55 97.7 F 70 16 128/66 95 03/04/18 16:12 68 Intake and Output 03/05/18 03/05/18 03/05/18 06:59 14:59 22:59 Intake Total 462 Output Total 1000 1500 Balance -1000 -1038 Intake: Oral 462 Output: Urine 1000 1500 Other: Voiding Method Toilet Urinal Weight 88.4 kg No acute distress, oriented 3. Nasal O2 in place. No use of accessory muscles. No mary respiratory distress. HEENT examination is grossly unremarkable. Mucous membranes are moist. No oral lesions. Neck supple. Full range of motion. No adenopathy thyromegaly or neck vein distention. Cardiovascular examination reveals regular rhythm rate. S1-S2 normal. No S3 or S4. No discernible murmur noted. Heart sounds are distant. Lungs reveal coarse bilateral crackles and rhonchi. No wheezes. Breath sounds are diminished. Breath sounds are equal bilaterally. Abdomen is soft and bowel sounds are heard. No masses or tenderness. Extremities are intact. No cyanosis clubbing or edema. Skin is without rash or lesion. Neurologic examination is brief but nonfocal. Results - Laboratory Findings CBC and BMP: 03/05/18 05:55 03/05/18 05:55 Abnormal lab findings: Abnormal Labs 03/03/18 03/03/18 03/03/18 19:57 19:57 20:45 WBC 10.8 H RBC 3.99 L Hgb 11.8 L Hct 37.6 L Plt Count 91 L Neutrophils # 10.0 H Lymphocytes # 0.5 L Sodium 134 L Chloride 95 L Carbon Dioxide 35 H BUN 41 H Creatinine 0.62 L Glucose 125 H POC Glucose (mg/dL) 131 H Calcium Total Protein 5.3 L Albumin 3.0 L TSH 03/04/18 03/04/18 03/04/18 05:28 05:28 05:56 WBC RBC 3.70 L Hgb 11.0 L Hct 34.9 L Plt Count 81 L Neutrophils # 9.6 H Lymphocytes # 0.4 L Sodium 136 L Chloride 93 L Carbon Dioxide 39 H BUN 41 H Creatinine 0.63 L Glucose 144 H POC Glucose (mg/dL) 151 H Calcium 8.2 L Total Protein Albumin TSH 0.327 L 03/04/18 03/04/18 03/04/18 11:21 16:27 21:11 WBC RBC Hgb Hct Plt Count Neutrophils # Lymphocytes # Sodium Chloride Carbon Dioxide BUN Creatinine Glucose POC Glucose (mg/dL) 155 H 161 H 182 H Calcium Total Protein Albumin TSH 03/05/18 03/05/18 03/05/18 05:55 05:55 06:02 WBC 11.7 H RBC 3.77 L Hgb 11.0 L Hct 34.9 L Plt Count 89 L Neutrophils # 10.8 H Lymphocytes # 0.4 L Sodium 136 L Chloride 90 L Carbon Dioxide 44 H* BUN 47 H Creatinine Glucose 133 H POC Glucose (mg/dL) 160 H Calcium Total Protein Albumin TSH 03/05/18 11:43 WBC RBC Hgb Hct Plt Count Neutrophils # Lymphocytes # Sodium Chloride Carbon Dioxide BUN Creatinine Glucose POC Glucose (mg/dL) 181 H Calcium Total Protein Albumin TSH - Diagnostic Findings Chest x-ray: report reviewed, image reviewed (Chest x-ray, labs and medications are reviewed.) Assessment and Plan Assessment: Assessment COPD exacerbation complicated by bilateral left greater than right-sided pneumonia Recent admission to the hospital for a similar situation with recent discharge Rule out healthcare acquired pneumonia (HCAP). CAD with recent bypass grafting History of ongoing tobacco use History of essential hypertension History of atrial fibrillation History of possible underlying dementia History of hyperlipidemia Plan: Plan dated 03/05/2018 Labs, x-rays and medications are reviewed. White count 11.7, hemoglobin 11 hematocrit 35.9 and platelet count 89,000. Sodium 136 potassium 4 chloride is 90 and CO2 34. Anion gap is normal. BUN was 37 with a creatinine of 0.72. Chest x-ray shows an extensive pneumonic infiltrate in the left mid and lower lung zones as well as in the right base. Microbiological studies as far negative. He is currently on cefepime DuoNeb, Solu-Medrol and will be placed on Symbicort 160/4.5, 2 puffs twice a day. He is counseled about the importance of smoking cessation. Additional recommendations and suggestions are forthcoming. Gnosis is guarded. We will continue to follow. Time with Patient: Greater than 30
[2018-03-05 17:14] LABS: Glucose,Whole Blood 162 mg/dL (75-99)
--- NOTE | 2018-03-05 17:20 | P.PN ---
Subjective Progress Note Date: 03/05/18 Progress note being dictated for Dr. Calero Interval history: This a 67-year-old gentleman admitted with bilateral pneumonia -possible healthcare associated, left greater than right, COPD and multiple other medical issues. Maintained on broad-spectrum IV antibiotics. Continues on nebulized bronchodilators, IV steroids. Currently maintaining O2 sats in the 90s on 3 L nasal cannula, wears 2.5 L at home. Diuresing well on Lasix IV push with 24-hour I&O reflecting a negative fluid balance. Lasix converted to oral. Denies chest pain, palpitations. Afebrile. Telemetry atrial fibrillation Objective - Vital Signs Vital signs: Vital Signs Temp 97.8 F 03/05/18 15:44 Pulse 67 03/05/18 15:44 Resp 18 03/05/18 15:44 BP 113/73 03/05/18 15:44 Pulse Ox 97 03/05/18 15:44 Intake & Output 03/04/18 03/05/18 03/05/18 18:59 06:59 18:59 Intake Total 462 462 Output Total 1200 1800 1500 Balance -738 -1800 -1038 Weight 88.4 kg Intake: Oral 462 462 Output: Urine 1200 1800 1500 Other: Voiding Method Toilet Toilet Urinal Urinal - Exam PHYSICAL EXAM: VITAL SIGNS: [As above] GENERAL: Sitting up in bed, no acute distress HEENT: Conjunctivae normal. eyes normal. Oral mucosa moist NECK: No JVD. No thyroid enlargement. No LNs CARDIOVASCULAR: S1, S2 muffled. Irregular, systolic murmur RESPIRATION: Breath sounds diminished in the bases. Scattered rhonchi and crackles. Expiratory wheezing, left greater than right. ABDOMEN: Soft, nontender . No guarding. no masses palpable. Bowel sounds heard. LEGS: No edema. no swelling PSYCHIATRY: Alert and oriented -3, mood and affect normal. NERVOUS SYSTEM: Cranial N 2-12 grossly normal. Moves all 4 limbs. Diffuse weakness No focal deficits. - Labs CBC & Chem 7: 03/05/18 05:55 03/05/18 05:55 Labs: Abnormal Lab Results - Last 24 Hours (Table) 03/04/18 03/05/18 03/05/18 Range/Units 21:11 05:55 05:55 WBC 11.7 H (3.8-10.6) k/uL RBC 3.77 L (4.30-5.90) m/uL Hgb 11.0 L (13.0-17.5) gm/dL Hct 34.9 L (39.0-53.0) % Plt Count 89 L (150-450) k/uL Neutrophils # 10.8 H (1.3-7.7) k/uL Lymphocytes # 0.4 L (1.0-4.8) k/uL Sodium 136 L (137-145) mmol/L Chloride 90 L (98-107) mmol/L Carbon Dioxide 44 H* (22-30) mmol/L BUN 47 H (9-20) mg/dL Glucose 133 H (74-99) mg/dL POC Glucose (mg/dL) 182 H (75-99) mg/dL 03/05/18 03/05/18 Range/Units 06:02 11:43 WBC (3.8-10.6) k/uL RBC (4.30-5.90) m/uL Hgb (13.0-17.5) gm/dL Hct (39.0-53.0) % Plt Count (150-450) k/uL Neutrophils # (1.3-7.7) k/uL Lymphocytes # (1.0-4.8) k/uL Sodium (137-145) mmol/L Chloride (98-107) mmol/L Carbon Dioxide (22-30) mmol/L BUN (9-20) mg/dL Glucose (74-99) mg/dL POC Glucose (mg/dL) 160 H 181 H (75-99) mg/dL Assessment and Plan Assessment: -Acute COPD exacerbation with bilateral pneumonia, possibly healthcare acquired , left greater than right -Acute on chronic CHF, diastolic dysfunction, EF 50-55% -CAD, recent CABG -COPD -Chronic paroxysmal atrial fibrillation -Hypertension -COPD -Continued ongoing nicotine dependence -Thrombocytopenia of undetermined etiology Plan: Continue on current medication regime ,monitoring and symptomatic treatment. Lasix converted to oral. Maintain nebulized bronchodilators, steroids, antibiotics, diuretics. Eliquis Added to med regime for anticoagulation as per cardiology. Follow closely with both pulmonary and cardiology. Close monitoring of Accu-Cheks, currently controlled. The impression and plan of care has been dictated as directed. : I performed a history and examination of this patient, discussed the same with the dictator. I agree with the dictator's note ,documented as a scribe. Any additional findings or plans will be noted.
[2018-03-05] MEDS: TEMAZEPAM 15 MG CAP PO PRN (20:07)
[2018-03-05] MEDS: SYMBICORT 160-4.5 MCG INHALER INHALATION SCH (20:31)
[2018-03-05 21:11] LABS: Glucose,Whole Blood 144 mg/dL (75-99)
[2018-03-06] MEDS: CEFEPIME 2 GM in SODIUM CHLORIDE 0.9% 50 ML IVPB SCH ×3 (01:59→18:12)
[2018-03-06 05:51] LABS: Basophils % (A) 0 %; Eosinophils % (A) 0 %; HCT 35.2 % (39.0-53.0); HGB 10.9 gm/dL (13.0-17.5); Hypochromasia Slight; Lymphocytes # (A) 0.3 k/uL (1.0-4.8); Lymphocytes % (A) 3 %; MCH 29.6 pg (25.0-35.0); MCHC 30.9 g/dL (31.0-37.0); MCV 95.9 fL (80.0-100.0); Mean Platelet Volume 8.7; Monocytes # (A) 0.2 k/uL (0-1.0); Monocytes % (A) 2 %; Neutrophils # (A) 10.9 k/uL (1.3-7.7); Neutrophils % (A) 95 %; RBC 3.67 m/uL (4.30-5.90); RDW 15.7 % (11.5-15.5); WBC 11.5 k/uL (3.8-10.6)
[2018-03-06 06:02] LABS: Blood Urea Nitrogen 48 mg/dL (9-20); Calcium 8.3 mg/dL (8.4-10.2); Chloride 88 mmol/L (98-107); Glucose 194 mg/dL (74-99); Potassium 3.3 mmol/L (3.5-5.1); Sodium 134 mmol/L (137-145)
[2018-03-06 06:09] LABS: Anion Gap 7 mmol/L
[2018-03-06 06:16] LABS: Glucose,Whole Blood 161 mg/dL (75-99)
[2018-03-06 06:17] LABS: Carbon Dioxide 39 mmol/L (22-30)
[2018-03-06 06:19] LABS: Platelet Count 85 k/uL (150-450)
[2018-03-06] MEDS: methylPREDNISolone SOD SUCCI 125 MG/2 ML VIAL IV SCH ×4 (06:23→23:22)
[2018-03-06] MEDS: PANTOPRAZOLE 40 MG TABLET PO SCH ×2 (06:23→18:10)
[2018-03-06] MEDS: INSULIN ASPART 100 UNIT/ML 1 ML 10 ML VIAL SQ SCH ×4 (06:24→21:38)
[2018-03-06] MEDS: IPRATROPIUM-ALBUTEROL 3 ML NEB INHALATION SCH ×4 (07:32→20:38)
[2018-03-06] MEDS: SYMBICORT 160-4.5 MCG INHALER INHALATION SCH ×2 (07:32→20:38)
[2018-03-06] MEDS: CLOPIDOGREL 75 MG TAB PO SCH (08:00)
[2018-03-06] MEDS: ASPIRIN 81 MG PO SCH (08:00)
[2018-03-06] MEDS: LISINOPRIL 5 MG TAB PO SCH ×2 (08:00→21:23)
[2018-03-06] MEDS: METOPROLOL SUCCINATE (ER) 25 MG TAB.ER.24H PO SCH (08:00)
[2018-03-06] MEDS ORDERED: PNEUMOCOCCAL VACC-PNEUMOVAX 23 25 MCG/0.5 ML VIAL IM ONE (08:00)
[2018-03-06] MEDS ORDERED: INFLUENZA VACCINE (6 MOS+) 60 MCG/0.5 ML SYRINGE IM ONE (08:00)
[2018-03-06] MEDS: DOCUSATE 100 MG CAP PO SCH (08:00)
[2018-03-06] MEDS: POTASSIUM CHLORIDE ER 20 MEQ TAB.ER PO SCH ×4 (08:00→18:11)
[2018-03-06] MEDS: APIXABAN 5 MG TAB PO SCH ×2 (08:00→21:23)
[2018-03-06] MEDS: FUROSEMIDE 40 MG TAB PO SCH ×2 (08:00→16:28)
[2018-03-06] MEDS: NICOTINE 14MG/24HR PATCH TRANSDERM SCH (08:02)
[2018-03-06] MEDS: ATORVASTATIN 80 MG TAB PO SCH (08:02)
--- NOTE | 2018-03-06 08:26 | XR ---
EXAMINATION TYPE: XR chest 2V DATE OF EXAM: 03/06/2018 COMPARISON: 03/03/2018 TECHNIQUE: PA and lateral views submitted. HISTORY: Shortness of breath FINDINGS: Hyperinflation noted. Bilateral consolidation and pleural effusion greater on the left. There is nodu larity along the mediastinum on the right. Adenopathy mass or aneurysm of the differential. Postopera tive change involving the mediastinum. No overt failure. No pneumothorax. Diffuse osteopenia noted. IMPRESSION: 1. Bilateral consolidation and pleural effusion are stable. Somewhat nodular pattern to the right per ihilar and right paratracheal stripe which could be correlated with CT scan to exclude mass or adenop athy. 2. COPD.
[2018-03-06] MEDS: HYDROcodone/APAP 5-325MG 1 EACH TAB PO PRN ×2 (09:23→16:28)
[2018-03-06 11:45] LABS: Glucose,Whole Blood 130 mg/dL (75-99)
--- NOTE | 2018-03-06 14:45 | P.PN ---
Subjective Progress Note Date: 03/06/18 This is a 67-year-old gentleman who was initially transferred here from [facility] with symptoms of progressive dyspnea. Patient has known history of coronary artery disease with prior bypass surgery approximately 4 months ago, he presented to the hospital with symptoms of shortness of breath, productive cough and wheezing. Patient also has a known history of COPD and used to smoke 2 packs a day until very recently. The patient was seen in consultation yesterday by Dr. Stone, felt to have some mild congestive cardiac failure. His weight today is down 2 kg, he still continues to have scattered wheezing. Echocardiogram with Doppler study revealed an ejection fraction of 50-55%, moderate MR, mild to moderate TR. Pressure 142/70 with a heart rate in the 80s, 96% on 3 L of oxygen. White blood cell count 11.7, hemoglobin 11.0, platelet count 89. Sodium 136, potassium 4.0, BUN 47, creatinine 0.7. Patient does have a history of atrial fibrillation post surgery, again last evening went back into [facility] and continues to be in atrial fibrillation this morning. He did have a history of left atrial appendage closure, he will require anticoagulation. 03/06/2018 Patient was seen and examined this morning, overall doing well. She needs to be in atrial fibrillation this morning, has since converted to normal sinus rhythm. Echo revealed normal left ventricular systolic function. Start the patient on some amiodarone to help maintain normal sinus rhythm. Objective - Vital Signs Vital signs: Vital Signs Temp 96 F L 03/06/18 08:00 Pulse 72 03/06/18 11:11 Resp 16 03/06/18 08:00 BP 156/70 03/06/18 08:00 Pulse Ox 97 03/06/18 08:00 Intake & Output 03/05/18 03/06/18 03/06/18 18:59 06:59 18:59 Intake Total 702 462 Output Total 1725 350 500 Balance -1023 -350 -38 Weight 87.7 kg Intake: Oral 702 462 Output: Urine 1725 350 500 Other: Voiding Method Toilet Urinal # Voids 2 2 - Exam PHYSICAL EXAMINATION: GENERAL: 67-year-old gentleman in no acute distress at the time of my examination HEENT: Head is atraumatic, normocephalic. Pupils equal, round. Sclera anicteric. Conjunctiva are clear. Mucous membranes of the mouth are moist. Neck is supple. There is no elevated jugular venous pressure. No carotid bruit is heard. HEART EXAMINATION: Heart S1 S2 1 systolic murmur is heard. CHEST EXAMINATION: His reveal scattered wheezing throughout. ABDOMEN: Soft, nontender. Bowel sounds are heard. No organomegaly noted. EXTREMITIES: 2+ peripheral pulses with no evidence of peripheral edema and no calf tenderness noted. NEUROLOGIC patient is awake, alert and oriented X3. . - Labs CBC & Chem 7: 03/06/18 05:30 03/06/18 05:30 Labs: Abnormal Lab Results - Last 24 Hours (Table) 03/05/18 03/05/18 03/06/18 Range/Units 17:03 21:09 05:30 WBC 11.5 H (3.8-10.6) k/uL RBC 3.67 L (4.30-5.90) m/uL Hgb 10.9 L (13.0-17.5) gm/dL Hct 35.2 L (39.0-53.0) % MCHC 30.9 L (31.0-37.0) g/dL RDW 15.7 H (11.5-15.5) % Plt Count 85 L (150-450) k/uL Neutrophils # 10.9 H (1.3-7.7) k/uL Lymphocytes # 0.3 L (1.0-4.8) k/uL Sodium (137-145) mmol/L Potassium (3.5-5.1) mmol/L Chloride (98-107) mmol/L Carbon Dioxide (22-30) mmol/L BUN (9-20) mg/dL Glucose (74-99) mg/dL POC Glucose (mg/dL) 162 H 144 H (75-99) mg/dL Calcium (8.4-10.2) mg/dL 03/06/18 03/06/18 03/06/18 Range/Units 05:30 06:13 11:35 WBC (3.8-10.6) k/uL RBC (4.30-5.90) m/uL Hgb (13.0-17.5) gm/dL Hct (39.0-53.0) % MCHC (31.0-37.0) g/dL RDW (11.5-15.5) % Plt Count (150-450) k/uL Neutrophils # (1.3-7.7) k/uL Lymphocytes # (1.0-4.8) k/uL Sodium 134 L (137-145) mmol/L Potassium 3.3 L (3.5-5.1) mmol/L Chloride 88 L (98-107) mmol/L Carbon Dioxide 39 H (22-30) mmol/L BUN 48 H (9-20) mg/dL Glucose 194 H (74-99) mg/dL POC Glucose (mg/dL) 161 H 130 H (75-99) mg/dL Calcium 8.3 L (8.4-10.2) mg/dL Assessment and Plan Plan: Assessment and plan #1 symptoms of progressive dyspnea likely combination of COPD exacerbation with associated pneumonia and element of mild diastolic acute on chronic congestive heart failure. Echocardiogram with Doppler study revealed an ejection fraction of 50-55%, basal lateral and mid posterior wright were hypokinetic. #2 paroxysmal atrial fibrillation, patient currently in atrial fibrillation #3 hypertension #4 hyperlipidemia #5 history of coronary artery bypass grafting surgery approximately 4 months ago at which time patient underwent left atrial appendage closure as well. Plan We will continue anticoagulation with Eliquis, we will also start the patient on amiodarone 400 mg by mouth twice a day and taper down that dose. To help maintain normal sinus rhythm. 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 DNP note has been reviewed, I agree with a documented findings and plan of care. Patient was seen and examined.
[2018-03-06 16:21] LABS: Glucose,Whole Blood 213 mg/dL (75-99)
--- NOTE | 2018-03-06 16:37 | P.PN ---
Subjective Progress Note Date: 03/06/18 Principal diagnosis: COPD exacerbation complicated by right-sided pneumonia Pulmonary/critical care consult dated 03/05/2018 This is a 67-year-old male who was seen in the emergency room on March 03. He apparently went into the hospital up in [facility] and there he was shipped down to [facility]. Apparently the patient was recently inpatient here for COPD exacerbation and pneumonia. The patient has a history of CAD with previous bypass grafting, and complains of a couple days with of increasing shortness of breath chest congestion coughing wheezing and some phlegm production. He sees a PA up in the [place] area. In addition, secondary to heavy tobacco use, he does have a history of COPD as well as a history of heart failure. The patient was evaluated in the emergency room and was thought to possibly have healthcare acquired pneumonia since he was recently inpatient here. The patient's major complaints include shortness of breath chest congestion coughing and phlegm production. The patient was laying flat in bed. He did have nasal O2 in place. He appears to be relatively comfortable. His chest x-ray did show a worsening infiltrate in the mid to lower left lung lopez as well as in the right basilar area. On 03/06/2018 patient seen in follow-up on selective care unit, he is awake and alert, resting comfortably in bed, in no acute distress, denies any dyspnea, chest pain, denies any fever or chills, night sweats. Afebrile, her cancer liters per nasal cannula, his pulse ox is 97%, hemodynamically stable. Vital chest x-ray was reviewed by Dr. Horvath, and shows improvement in the appearance of bilateral infiltrates. Patient remains on cefepime, today's labs were reviewed, WBC is 11.5, hemoglobin is 10.9, sodium is 134, potassium is 3.3, chloride is 88, CO2 is 39. Objective - Vital Signs Vital signs: Vital Signs Temp 96 F L 03/06/18 08:00 Pulse 70 03/06/18 15:49 Resp 16 03/06/18 08:00 BP 156/70 03/06/18 08:00 Pulse Ox 97 03/06/18 08:00 Intake & Output 03/05/18 03/06/18 03/06/18 18:59 06:59 18:59 Intake Total 702 462 Output Total 1725 350 500 Balance -1023 -350 -38 Weight 87.7 kg Intake: Oral 702 462 Output: Urine 1725 350 500 Other: Voiding Method Toilet Urinal # Voids 2 2 - Exam GENERAL EXAM: Alert, pleasant 67-year-old white male comfortable in no apparent distress. HEAD: Normocephalic/atraumatic. EYES: Normal reaction of pupils, equal size. Conjunctiva pink, sclera white. NOSE: Clear with pink turbinates. THROAT: No erythema or exudates. NECK: No masses, no JVD, no thyroid enlargement, no adenopathy. CHEST: No chest wall deformity. Symmetrical expansion. LUNGS: Equal air entry with scattered wheezing CVS: Regular rate and rhythm, normal S1 and S2, no gallops, no murmurs, no rubs ABDOMEN: Soft, nontender. No hepatosplenomegaly, normal bowel sounds, no guarding or rigidity. EXTREMITIES: No clubbing, no edema, no cyanosis, 2+ pulses and upper and lower extremities. MUSCULOSKELETAL: Muscle strength and tone normal. SPINE: No scoliosis or deformity SKIN: No rashes CENTRAL NERVOUS SYSTEM: Alert and oriented -3. No focal deficits, tone is normal in all 4 extremities. PSYCHIATRIC: Alert and oriented -3. Appropriate affect. Intact judgment and insight. - Labs CBC & Chem 7: 03/06/18 05:30 03/06/18 05:30 Labs: Abnormal Lab Results - Last 24 Hours (Table) 03/05/18 03/05/18 03/06/18 Range/Units 17:03 21:09 05:30 WBC 11.5 H (3.8-10.6) k/uL RBC 3.67 L (4.30-5.90) m/uL Hgb 10.9 L (13.0-17.5) gm/dL Hct 35.2 L (39.0-53.0) % MCHC 30.9 L (31.0-37.0) g/dL RDW 15.7 H (11.5-15.5) % Plt Count 85 L (150-450) k/uL Neutrophils # 10.9 H (1.3-7.7) k/uL Lymphocytes # 0.3 L (1.0-4.8) k/uL Sodium (137-145) mmol/L Potassium (3.5-5.1) mmol/L Chloride (98-107) mmol/L Carbon Dioxide (22-30) mmol/L BUN (9-20) mg/dL Glucose (74-99) mg/dL POC Glucose (mg/dL) 162 H 144 H (75-99) mg/dL Calcium (8.4-10.2) mg/dL 03/06/18 03/06/18 03/06/18 Range/Units 05:30 06:13 11:35 WBC (3.8-10.6) k/uL RBC (4.30-5.90) m/uL Hgb (13.0-17.5) gm/dL Hct (39.0-53.0) % MCHC (31.0-37.0) g/dL RDW (11.5-15.5) % Plt Count (150-450) k/uL Neutrophils # (1.3-7.7) k/uL Lymphocytes # (1.0-4.8) k/uL Sodium 134 L (137-145) mmol/L Potassium 3.3 L (3.5-5.1) mmol/L Chloride 88 L (98-107) mmol/L Carbon Dioxide 39 H (22-30) mmol/L BUN 48 H (9-20) mg/dL Glucose 194 H (74-99) mg/dL POC Glucose (mg/dL) 161 H 130 H (75-99) mg/dL Calcium 8.3 L (8.4-10.2) mg/dL 03/06/18 Range/Units 16:17 WBC (3.8-10.6) k/uL RBC (4.30-5.90) m/uL Hgb (13.0-17.5) gm/dL Hct (39.0-53.0) % MCHC (31.0-37.0) g/dL RDW (11.5-15.5) % Plt Count (150-450) k/uL Neutrophils # (1.3-7.7) k/uL Lymphocytes # (1.0-4.8) k/uL Sodium (137-145) mmol/L Potassium (3.5-5.1) mmol/L Chloride (98-107) mmol/L Carbon Dioxide (22-30) mmol/L BUN (9-20) mg/dL Glucose (74-99) mg/dL POC Glucose (mg/dL) 213 H (75-99) mg/dL Calcium (8.4-10.2) mg/dL Assessment and Plan Plan: COPD exacerbation complicated by bilateral left greater than right-sided pneumonia Recent admission to the hospital for a similar situation with recent discharge Rule out healthcare acquired pneumonia (HCAP). CAD with recent bypass grafting History of ongoing tobacco use History of essential hypertension History of atrial fibrillation History of possible underlying dementia History of hyperlipidemia Plan: Continue with current antibiotic coverage, continue nebulized bronchodilators, Symbicort, IV steroids, and oral diuretics. His chest x-ray has been reviewed by Dr. Mann, and shows improvement in the appearance of bilateral infiltrates and pleural effusions. Clinically patient is breathing easier, no fever no chills. We'll continue current medical treatment I performed a history & physical examination of the patient and discussed their management with my nurse practitioner, Gavi Womack. I reviewed the nurse practitioner's note and agree with the documented findings and plan of care. Lung sounds are positive for diffuse wheezes. The findings and the impression was discussed with the patient. I attest to the documentation by the nurse practitioner. Time with Patient: Less than 30
--- NOTE | 2018-03-06 19:11 | PN ---
PROGRESS NOTE DATE OF SERVICE: 03/06/2018 This 67-year-old gentleman who was admitted with acute COPD acute exacerbation with bilateral pneumonia also had a CHF acute exacerbation. Patient has been closely monitored. No chest pain. No palpitations. No fever. The most recent chest x-ray, which was reviewed by me, showed significant improvement with evidence of left pleural effusion at this time. PAST MEDICAL HISTORY: Reviewed. REVIEW OF SYSTEMS: CARDIOVASCULAR: No angina. RESPIRATORY: As mentioned earlier. GI: No nausea. : No dysuria. NERVOUS SYSTEM: No numbness or weakness. CURRENT MEDICATIONS: 1. Tylenol 1000 mg q.6h p.r.n. 2. [place] 5 mg q.6h p.r.n. 3. DuoNeb q.i.d. and p.r.n. 4. Xanax 0.5 t.i.d. 5. Cordarone 400 mg b.i.d. 6. Eliquis 5 mg b.i.d. 7. Aspirin 81 mg. 8. Lipitor 80 mg. 9. Cefepime 2 g q.8. 10.Plavix 75 mg. 11.Colace 100 mg p.o. daily. 12.Lasix 40 mg b.i.d. 13.Dilaudid. 14.Zestril. 15.Solu-Medrol 60 IV q.8h. 16.Habitrol. 17.Protonix. 18.K-Dur. 19.Zestril. PHYSICAL EXAM: Patient is alert, oriented x3. Pulse 72, blood pressure 120/59, respiratory 16, temperature 98.2, pulse ox 96% on 3 L. HEENT: Conjunctivae normal. Oral mucosa moist. Neck is no jugular venous distention. No carotid bruit. No lymph node enlargement. CARDIOVASCULAR: S1, S2. RESPIRATORY: Breath sounds diminished in the bases. A few scattered rhonchi and crackles. ABDOMEN: Soft, nontender. No mass palpable. LEGS: No edema. NERVOUS SYSTEM: Higher function as mentioned. Moves all four limbs. No focal deficits. LYMPHATICS: No lymphadenopathy in the neck, axillae, groin. SKIN: No ulcer, rash or bleeding. LABS: WBC 7.2, hemoglobin 10.9, sodium 132, potassium 3.3. ASSESSMENT: 1. Chronic obstructive pulmonary disease acute exacerbation with bilateral pneumonia possibly healthcare associated left greater than right. 2. Left pleural effusion. 3. Acute on chronic congestive heart failure with diastolic dysfunction, ejection fraction 50 to 55%. 4. Coronary artery disease, recent CABG. 5. Chronic obstructive pulmonary disease. 6. Chronic paroxysmal atrial fibrillation. 7. Gait dysfunction. 8. Hypertension. 9. History of nicotine dependence. 10.Thrombocytopenia of undetermined etiology. RECOMMENDATIONS AND DISCUSSION: I recommend to continue current management, continue monitoring, and symptomatic treatment. Otherwise, I will monitor the patient closely, supplement potassium. Otherwise continue the rest of medications. Repeat labs. PT, OT evaluation, possible ECF rehab soon. Guarded prognosis. Further recommendations to follow. MMODL / IJN: [id number] /
[2018-03-06 20:57] LABS: Glucose,Whole Blood 123 mg/dL (75-99)
[2018-03-06] MEDS: TEMAZEPAM 15 MG CAP PO PRN (21:23)
[2018-03-06] MEDS: AMIODARONE 200 MG TAB PO SCH (21:23)
[2018-03-07] MEDS: HYDROcodone/APAP 5-325MG 1 EACH TAB PO PRN ×2 (00:55→15:17)
[2018-03-07] MEDS: CEFEPIME 2 GM in SODIUM CHLORIDE 0.9% 50 ML IVPB SCH ×3 (02:20→17:52)
[2018-03-07] MEDS: methylPREDNISolone SOD SUCCI 125 MG/2 ML VIAL IV SCH ×3 (05:00→17:52)
[2018-03-07] MEDS: IPRATROPIUM-ALBUTEROL 3 ML NEB INHALATION SCH ×3 (06:54→15:20)
[2018-03-07] MEDS: SYMBICORT 160-4.5 MCG INHALER INHALATION SCH (06:54)
[2018-03-07 07:24] LABS: Glucose,Whole Blood 148 mg/dL (75-99)
[2018-03-07] MEDS: METOPROLOL SUCCINATE (ER) 25 MG TAB.ER.24H PO SCH (07:54)
[2018-03-07] MEDS: FUROSEMIDE 40 MG TAB PO SCH ×2 (07:54→15:17)
[2018-03-07] MEDS: NICOTINE 14MG/24HR PATCH TRANSDERM SCH (07:54)
[2018-03-07] MEDS: LISINOPRIL 5 MG TAB PO SCH (07:54)
[2018-03-07] MEDS: APIXABAN 5 MG TAB PO SCH (07:55)
[2018-03-07] MEDS: AMIODARONE 200 MG TAB PO SCH (07:55)
[2018-03-07] MEDS: PANTOPRAZOLE 40 MG TABLET PO SCH ×2 (07:55→17:52)
[2018-03-07] MEDS: ATORVASTATIN 80 MG TAB PO SCH (07:55)
[2018-03-07] MEDS: POTASSIUM CHLORIDE ER 20 MEQ TAB.ER PO SCH (07:55)
[2018-03-07] MEDS: DOCUSATE 100 MG CAP PO SCH (07:55)
[2018-03-07] MEDS: CLOPIDOGREL 75 MG TAB PO SCH (07:55)
[2018-03-07] MEDS: ASPIRIN 81 MG PO SCH (07:55)
[2018-03-07] MEDS: INSULIN ASPART 100 UNIT/ML 1 ML 10 ML VIAL SQ SCH ×3 (07:59→17:23)
[2018-03-07] MEDS ORDERED: INFLUENZA VACCINE (6 MOS+) 60 MCG/0.5 ML SYRINGE IM ONE (08:00)
[2018-03-07] MEDS ORDERED: PNEUMOCOCCAL VACC-PNEUMOVAX 23 25 MCG/0.5 ML VIAL IM ONE (08:00)
[2018-03-07 09:47] LABS: Blood Urea Nitrogen 46 mg/dL (9-20); Calcium 8.5 mg/dL (8.4-10.2); Chloride 93 mmol/L (98-107); Glucose 179 mg/dL (74-99); Sodium 137 mmol/L (137-145)
[2018-03-07 09:53] LABS: Anion Gap 1 mmol/L; Basophils % (A) 0 %; Eosinophils % (A) 0 %; HCT 35.2 % (39.0-53.0); HGB 11.1 gm/dL (13.0-17.5); Hypochromasia Slight; Lymphocytes # (A) 0.3 k/uL (1.0-4.8); Lymphocytes % (A) 3 %; MCH 29.8 pg (25.0-35.0); MCHC 31.6 g/dL (31.0-37.0); MCV 94.4 fL (80.0-100.0); Monocytes # (A) 0.3 k/uL (0-1.0); Monocytes % (A) 3 %; Neutrophils # (A) 11.3 k/uL (1.3-7.7); Neutrophils % (A) 94 %; RBC 3.73 m/uL (4.30-5.90); RDW 15.5 % (11.5-15.5)
[2018-03-07 09:56] LABS: Platelet Count 70 k/uL (150-450)
[2018-03-07 09:57] LABS: Carbon Dioxide 43 mmol/L (22-30)
[2018-03-07 10:42] VITALS: BMI 24.1
[2018-03-07 11:37] LABS: Glucose,Whole Blood 226 mg/dL (75-99)
--- NOTE | 2018-03-07 13:55 | P.PN ---
Subjective Progress Note Date: 03/07/18 Principal diagnosis: COPD exacerbation complicated by right-sided pneumonia Pulmonary/critical care consult dated 03/05/2018 This is a 67-year-old male who was seen in the emergency room on March 03. He apparently went into the hospital up in [facility] and there he was shipped down to [facility]. Apparently the patient was recently inpatient here for COPD exacerbation and pneumonia. The patient has a history of CAD with previous bypass grafting, and complains of a couple days with of increasing shortness of breath chest congestion coughing wheezing and some phlegm production. He sees a PA up in the [place] area. In addition, secondary to heavy tobacco use, he does have a history of COPD as well as a history of heart failure. The patient was evaluated in the emergency room and was thought to possibly have healthcare acquired pneumonia since he was recently inpatient here. The patient's major complaints include shortness of breath chest congestion coughing and phlegm production. The patient was laying flat in bed. He did have nasal O2 in place. He appears to be relatively comfortable. His chest x-ray did show a worsening infiltrate in the mid to lower left lung lopez as well as in the right basilar area. On 03/06/2018 patient seen in follow-up on selective care unit, he is awake and alert, resting comfortably in bed, in no acute distress, denies any dyspnea, chest pain, denies any fever or chills, night sweats. Afebrile, her cancer liters per nasal cannula, his pulse ox is 97%, hemodynamically stable. Vital chest x-ray was reviewed by Dr. Horvath, and shows improvement in the appearance of bilateral infiltrates. Patient remains on cefepime, today's labs were reviewed, WBC is 11.5, hemoglobin is 10.9, sodium is 134, potassium is 3.3, chloride is 88, CO2 is 39. On 02/27/2018 he seen in follow-up on medical surgical floor. he is awake, alert, currently on 3 L per nasal cannula, his pulse ox is 96%, hemodynamically stable, no fever no chills. No new chest x-rays today. It is labs reviewed, WBC is 12.0, hemoglobin is 11.1, sodium is 137, potassium is 4.0, chloride is 93 , CO2 is 43, BUN is 46 and creatinine 0.7. No specific complaints, no acute events overnight, patient has been treated with cefepime, nebulized bronchodilators, Symbicort, and IV steroids, and he is improving. Objective - Vital Signs Vital signs: Vital Signs Temp 97.1 F L 03/07/18 06:00 Pulse 76 03/07/18 07:05 Resp 20 03/07/18 06:00 BP 154/80 03/07/18 06:00 Pulse Ox 96 03/07/18 06:00 Intake & Output 03/06/18 03/07/18 03/07/18 18:59 06:59 18:59 Intake Total 462 Output Total 500 400 700 Balance -38 -400 -700 Weight 87.7 kg Intake: Oral 462 Output: Urine 500 400 700 Other: Voiding Method Urinal Urinal # Voids 2 - Exam GENERAL EXAM: Alert, pleasant 67-year-old white male comfortable in no apparent distress. HEAD: Normocephalic/atraumatic. EYES: Normal reaction of pupils, equal size. Conjunctiva pink, sclera white. NOSE: Clear with pink turbinates. THROAT: No erythema or exudates. NECK: No masses, no JVD, no thyroid enlargement, no adenopathy. CHEST: No chest wall deformity. Symmetrical expansion. LUNGS: Equal air entry with scattered wheezing CVS: Regular rate and rhythm, normal S1 and S2, no gallops, no murmurs, no rubs ABDOMEN: Soft, nontender. No hepatosplenomegaly, normal bowel sounds, no guarding or rigidity. EXTREMITIES: No clubbing, no edema, no cyanosis, 2+ pulses and upper and lower extremities. MUSCULOSKELETAL: Muscle strength and tone normal. SPINE: No scoliosis or deformity SKIN: No rashes CENTRAL NERVOUS SYSTEM: Alert and oriented -3. No focal deficits, tone is normal in all 4 extremities. PSYCHIATRIC: Alert and oriented -3. Appropriate affect. Intact judgment and insight. - Labs CBC & Chem 7: 03/07/18 08:51 03/07/18 08:51 Labs: Abnormal Lab Results - Last 24 Hours (Table) 03/06/18 03/06/18 03/07/18 Range/Units 16:17 20:52 07:01 WBC (3.8-10.6) k/uL RBC (4.30-5.90) m/uL Hgb (13.0-17.5) gm/dL Hct (39.0-53.0) % Plt Count (150-450) k/uL Neutrophils # (1.3-7.7) k/uL Lymphocytes # (1.0-4.8) k/uL Chloride (98-107) mmol/L Carbon Dioxide (22-30) mmol/L BUN (9-20) mg/dL Glucose (74-99) mg/dL POC Glucose (mg/dL) 213 H 123 H 148 H (75-99) mg/dL 03/07/18 03/07/18 03/07/18 Range/Units 08:51 08:51 11:23 WBC 12.0 H (3.8-10.6) k/uL RBC 3.73 L (4.30-5.90) m/uL Hgb 11.1 L (13.0-17.5) gm/dL Hct 35.2 L (39.0-53.0) % Plt Count 70 L (150-450) k/uL Neutrophils # 11.3 H (1.3-7.7) k/uL Lymphocytes # 0.3 L (1.0-4.8) k/uL Chloride 93 L (98-107) mmol/L Carbon Dioxide 43 H* (22-30) mmol/L BUN 46 H (9-20) mg/dL Glucose 179 H (74-99) mg/dL POC Glucose (mg/dL) 226 H (75-99) mg/dL Assessment and Plan Plan: COPD exacerbation complicated by bilateral left greater than right-sided pneumonia Recent admission to the hospital for a similar situation with recent discharge Rule out healthcare acquired pneumonia (HCAP). CAD with recent bypass grafting History of ongoing tobacco use History of essential hypertension History of atrial fibrillation History of possible underlying dementia History of hyperlipidemia Plan: Patient clinically continues to improve, vital signs are stable, no worsening dyspnea, no fever, no chills, from pulmonary perspective patient is stable, and could be considered for discharge. We'll need follow-up in the outpatient clinic for follow-up chest x-ray. I performed a history & physical examination of the patient and discussed their management with my nurse practitioner, Gavi Womack. I reviewed the nurse practitioner's note and agree with the documented findings and plan of care. Lung sounds are positive for diffuse wheezes. The findings and the impression was discussed with the patient. I attest to the documentation by the nurse practitioner. Time with Patient: Less than 30
[2018-03-07 14:04] VITALS: BP 150/78; RESP 22; TEMP 97.7
[2018-03-07 15:30] VITALS: PULSE 84
[2018-03-07 16:51] LABS: Glucose,Whole Blood 107 mg/dL (75-99)
--- NOTE | 2018-03-07 23:06 | DS ---
DISCHARGE SUMMARY DATE OF SERVICE: 03/07/2018 FINAL DIAGNOSES: 1. Chronic obstructive pulmonary disease exacerbation with bilateral pneumonia possibly healthcare associated left greater than right. 2. Left pleural effusion, stable. 3. Congestive heart failure with acute on chronic diastolic dysfunction, ejection fraction 50-55 percent. 4. History of coronary artery disease, recent coronary artery bypass grafting. 5. Chronic obstructive pulmonary disease. 6. Chronic paroxysmal atrial fibrillation. 7. Gait dysfunction. 8. Hypertension. 9. History of nicotine dependence. 10.Thrombocytopenia of undetermined etiology. DISCHARGE DISPOSITION: The patient will be discharged in stable condition with guarded prognosis. HISTORY OF PRESENT ILLNESS: This 67-year-old woman with a past medical history of COPD was admitted with pneumonia healthcare associated pneumonia suspected. Patient also had pleural effusion. Patient improved significantly. The possibility of rehab was initially considered but however the patient would like to go home at this time. Patient improved significantly. On exam, vital signs are stable. Cardio system: S1, S2 normal. Respiratory: Scattered rhonchi. Abdomen is soft. Nervous system: No focal deficits. Discharged cleared by Pulmonary. DISCHARGE ADVICE AND MEDICATIONS: 1. Diet is cardiac diet. 2. Activity limited until followup. 3. Follow up with Dr. Horvath in 2-3 days. 4. Follow up with Dr. Ligia Aguilar in 2-3 days. MEDICATIONS ARE: As follows: 1. Tylenol 1000 mg q.6h p.r.n. 2. Pacerone 200 mg p.o. daily. 3. Symbicort 160/4.5 two puffs b.i.d. 4. Colace 100 mg p.o. daily. 5. Toprol-XL 25 mg p.o. daily. 6. Eliquis 5 mg p.o. b.i.d. 7. Aspirin 81 mg p.o. daily. 8. Lipitor 80 mg. 9. Ceftin 500 mg p.o. b.i.d. for 5 days. 10.Lasix 40 mg p.o. daily. 11.DuoNeb q.i.d. and p.r.n. 12.Zestril 5 mg p.o. b.i.d. 13.Habitrol 1 daily. 14.Protonix 40 mg p.o. b.i.d. 15.Prednisone taper 40 mg daily for 3, 30 for 3 days, 10 for 3 days. Once again the patient is being discharged in stable condition with guarded prognosis. Total time taken 35 minutes. NOHELIAL / IJN: [id number] /
[2018-03-08] MEDS ORDERED: AMIODARONE 200 MG TAB PO SCH (09:00)
== END 2018-03-07 18:04 | disposition home health service (06) | DRG 291 ==
LOC: EC 10:03 → 3SCARD 11:53 → OBSVTOIN 03-04 15:53 → 4MS4W 03-06 20:08
PROVIDERS: ADMIT Hospitalist; ATTEND Hospitalist
DX: I11.0 Hypertensive heart disease with heart failure (principal); J18.9 Pneumonia, unspecified organism; E87.1 Hypo-osmolality and hyponatremia; J44.0 Chronic obstructive pulmonary disease with (acute) lower respiratory infection; J44.1 Chronic obstructive pulmonary disease with (acute) exacerbation; I50.33 Acute on chronic diastolic (congestive) heart failure; I27.20 Pulmonary hypertension, unspecified; D69.6 Thrombocytopenia, unspecified; I08.1 Rheumatic disorders of both mitral and tricuspid valves; I48.2 Chronic atrial fibrillation; F03.90 Unspecified dementia, unspecified severity, without behavioral disturbance, psychotic disturbance, mood disturbance, and anxiety; Y95 Nosocomial condition; E78.5 Hyperlipidemia, unspecified; M54.9 Dorsalgia, unspecified; R26.9 Unspecified abnormalities of gait and mobility; R09.02 Hypoxemia; I25.10 Atherosclerotic heart disease of native coronary artery without angina pectoris; I25.2 Old myocardial infarction; Z79.51 Long term (current) use of inhaled steroids; Z79.82 Long term (current) use of aspirin; Z79.899 Other long term (current) drug therapy; Z87.891 Personal history of nicotine dependence; Z95.1 Presence of aortocoronary bypass graft; Z71.6 Tobacco abuse counseling; Z90.49 Acquired absence of other specified parts of digestive tract; Z87.01 Personal history of pneumonia (recurrent); Z91.041 Radiographic dye allergy status
CPT/HCPCS: 71045; 71046; 80048; 80053; 80061; 83036; 84439; 84443; 85025; 93005; 93306; 94640; 96365; 96375; 99285